=== PATIENT | female | born 1980 | race Caucasian/White ===

== ENCOUNTER 2019-06-05 12:16 | Outpatient (CLI) | payer OTHER, SELFPAY ==
--- NOTE | ~2019-06-05 | MR_ITS ---
EXAMINATION: MR ankle LT wo con DATE: 06/05/2019 13:06 INDICATION: Achilles tendinitis with thinning with 6-9 months of heel pain TECHNIQUE: Magnetic resonance imaging (MRI) of the left ankle was performed without intravenous contr ast. Sequences included sagittal, coronal, and axial proton-density weighted fast spin echo without a nd with fat saturation. COMPARISON: None. FINDINGS: Medial ankle ligaments: Deep and superficial deltoid ligaments as well as the spring ligament are normal. Lateral ankle ligaments: The anterior and posterior inferior tibiofibular ligaments are normal. The anterior talofibular, calc aneofibular and posterior talofibular ligaments are normal. Tendons: Thickening and increased signal of the distal Achilles tendon consistent with moderate insertional te ndinosis. Achilles calcaneal spurs and enthesopathic ossicles in the distal Achilles tendon. No discr ete tendon tear. The peroneus longus and brevis tendons are normal. The tibialis anterior and extenso r hallucis longus and extensor digitorum longus tendons are normal. The tibialis posterior, flexor di gitorum longus and flexor hallucis longus tendons are normal. Plantar fascia: Plantar aponeurosis is normal. Bones/other: There is mild edema at the cephalad posterior tuberosity of the calcaneus at the Achilles tendon inse rtion consistent with mild enthesitis. No associated cortical erosions or bursitis. Bone marrow signa l is otherwise normal throughout. Normal with physiologic amount of joint fluid. There is mild likely reactive edema in the uterus fat pad. IMPRESSION: 1. 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 Reviewed, dictated and finalized at location A. IMPRESSION: 1. 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
== END 2019-06-05 12:17 | disposition home or self-care (01) ==
PROVIDERS: PCP Internal Medicine
DX: M76.62 Achilles tendinitis, left leg (principal)
CPT/HCPCS: 73721

== ENCOUNTER 2019-08-12 11:27 | Outpatient (CLI) | payer OTHER, SELFPAY ==
--- NOTE | 2019-08-12 11:29 | ECG_ITS ---
Measurements Intervals [place] Rate: 80 P: 25 AK: 131 QRS: -21 QRSD: 88 T: 5 QT: 363 QTc: 420 Interpretive Statements SINUS RHYTHM POOR R WAVE PROGRESSION, ANTERIOR LEADS BORDERLINE ECG Electronically Signed On 08-12-2019 12:45:59 CDT by Richard Colindres D.O.
[2019-08-12 11:51] LABS: Hematocrit 39.7 % (37.0-47.0); Hemoglobin 13.1 g/dL (12.0-15.0)
[2019-08-12 12:02] LABS: Blood Urea Nitrogen 7 mg/dL (7-17); Calcium 9.5 mg/dL (8.4-10.2); Carbon Dioxide 31 mmol/L (22-30); Chloride 99 mmol/L (98-107); Estimated Glomerular Filt Rate > 60; Glucose 218 mg/dL (65-105); Sodium 137 mmol/L (137-145)
== END 2019-08-12 11:28 | disposition home or self-care (01) ==
LOC: ANHSURGERY 11:29
PROVIDERS: Anesthesiology; PCP Internal Medicine; Visit Provider Obstetrics & Gynecology Gynecology
DX: Z01.818 Encounter for other preprocedural examination (principal); D64.9 Anemia, unspecified; I10 Essential (primary) hypertension
CPT/HCPCS: 36415; 80048; 85014; 85018; 93005

== ENCOUNTER 2019-08-22 00:08 | Outpatient (CLI) | payer OTHER, SELFPAY ==
[2019-08-22 15:54] LABS: SARS-CoV-2 RNA PCR Negative
== END 2019-08-22 00:09 | disposition home or self-care (01) ==
LOC: ANHCOVIDDT 00:08
PROVIDERS: PCP Internal Medicine; Visit Provider Obstetrics & Gynecology Gynecology
DX: Z01.818 Encounter for other preprocedural examination (principal); Z11.59 Encounter for screening for other viral diseases
CPT/HCPCS: 87635; C9803; U0003

== ENCOUNTER 2019-08-25 04:10 | Day surgery (SDC) | payer OTHER, SELFPAY ==
[2019-08-08 14:50] VITALS: BMI 39.5
[2019-08-25] VITALS (13 sets, daily range): BP systolic 108–158; BP diastolic 67–95; PULSE 70–97; RESP 12–19; TEMP 36.2–36.9; O2SAT 92–100
--- NOTE | 2019-08-25 07:25 | PM.HPGS ---
History of Present Illness History of Present Illness Consent: Risks, benefits, and alternatives have been discussed and questions answered. Patient agrees to proceed with procedure. Chief complaint: menorrhaghia,desires sterilization Narrative: Armida Vega is a 39 year old female with menorrhagia. She had normal D&C hysteroscopy. She tried conservative measures and now has decided to proceed with Kierra endometrial ablation. She has completed her childbearing and will also be having a laparoscopic BTL. Risks of procedures discussed including infection, bleeding, perforation or injury to internal organs, DVT, and anesthesia. Reviewed success rates of BTL and ablation. Discussed failure of BTL has increased ectopic . Patient agrees to proceed. [facility] Past Medical History Medical History (Updated 08/25/19 @ 07:29 by Valerie Daley MD) Allergies Anemia Bronchitis Chicken pox Eczema Essential hypertension Gestational diabetes Heart burn Mononucleosis Neuropathy (normal spontaneous vaginal delivery) Tendonitis Trochanteric bursitis, right hip Type 2 diabetes mellitus Surgical History Surgical History (Updated 08/07/19 @ 11:46 by Judy Molina [facility]) Delivery by section 2014 H/O dilation and curettage 2018 History of cholecystectomy 2010 Family History Family History (Updated 08/07/19 @ 11:48 by Judy Molina [facility]) Mother Hypertension Sibling Patient's brother is in good health Daughter Meningitis Father Arrhythmia Hypertension Diabetes mellitus Other Family history of arthritis Family history of cardiovascular disease Social History Social History Smoking status: Never smoker Alcohol intake: never Meds Home Medications and Allergies Home Medications Medication Instructions Recorded Confirmed Type aspirin 81 mg tablet,delayed 81 mg PO DAILY 01/28/19 08/08/19 History release cetirizine 10 mg capsule 10 mg PO DAILY 01/28/19 08/08/19 History cholecalciferol (vitamin D3) 50 20,000 unit PO BID tablet 01/28/19 08/08/19 History mcg (2,000 unit) tablet ferrous sulfate 325 mg (65 mg 325 mg PO BID 01/28/19 08/08/19 History iron) tablet losartan 100 mg tablet 100 mg PO DAILY 01/28/19 08/08/19 History omega-3 fatty acids 1,000 mg 1,000 mg PO BID 01/28/19 08/08/19 History capsule blood sugar diagnostic #300 each 06/03/19 08/07/19 Rx blood-glucose meter #1 each 06/03/19 08/07/19 Rx hydrochlorothiazide 25 mg tablet 25 mg PO DAILY #90 tablet 06/20/19 08/08/19 Rx gabapentin 600 mg tablet 600 mg PO BID #180 tablet 07/02/19 08/08/19 Rx levonorgestrel 0.15 mg-ethinyl 1 tablet PO DAILY 07/02/19 08/08/19 History estradiol 0.03 mg tablet metformin 1,000 mg tablet 1,000 mg PO BID #180 tablet 07/02/19 08/08/19 Rx simvastatin 40 mg tablet 40 mg PO DAILY #90 tablet 07/10/19 08/08/19 Rx pen needle, diabetic 32 gauge x #200 each 07/29/19 08/07/19 Rx 1/4 naproxen 500 mg tablet 500 mg PO BID PRN #60 tablet 08/04/19 08/08/19 Rx insulin glargine 100 unit/mL (3 65 unit SUB-Q DAILY 90 Days #58.5 08/06/19 08/08/19 Rx mL) subcutaneous pen ml liraglutide 0.6 mg/0.1 mL (18 mg/3 1.8 mg SUBCUT DAILY 90 Days #27 syr 08/06/19 08/08/19 Rx mL) subcutaneous pen injector fluticasone propionate 50 2 spray NASAL DAILY PRN #18.2 ml 08/07/19 08/08/19 Rx mcg/actuation nasal spray,suspension Apple Cider Vinegar Gummies 1 ea PO DAILY 08/08/19 History ergocalciferol (vitamin D2) 50,000 unit PO WEEKLY 08/08/19 08/08/19 History labetalol 100 mg PO BID 08/08/19 08/08/19 History labetalol 400 mg PO BID 08/08/19 08/08/19 History multivitamin 1 tablet PO DAILY 08/08/19 08/08/19 History mupirocin 2 % topical ointment 1 applic TOPICAL TID #30 gm 08/08/19 08/08/19 Rx pantoprazole 20 mg tablet,delayed 20 mg PO QAM #30 tablet 08/18/19 08/18/19 Rx release Allergies Allergy/AdvReac Type Severity Reaction Stat
[2019-08-25] MEDS: LACTATED RINGERS 1,000 ML 30 ML IV CONT ×2 (07:40→10:51)
[2019-08-25 07:56] LABS: Glucose Point of Care 134 (65-105)
--- NOTE | 2019-08-25 09:03 | WPDANESEPPF ---
Anes - Initial Pre Proc Eval Procedure: Operation Date: 08/25/19 09:30 Proposed Procedures p Hysteroscopy, Kierra Ablation - Valerie Daley MD s Laparoscopic Bilateral Tubal Ligation with Fallopian Rings - Valerie Daley MD Date/Time: 08/25/19 09:03 Surgeon: Valerie Daley MD Pre Op Diagnosis: menorrhaghia,desires sterilization Patient Data Age: 39 Gender: F Height: 5 ft 8 in Weight: 118.1 kg Last Vital Signs Temp 98.4 F 08/25/19 07:56 Pulse 88 08/25/19 07:56 Resp 16 08/25/19 07:56 BP 145/95 H 08/25/19 07:56 Pulse Ox 99 08/25/19 07:56 Allergies Allergy/AdvReac Type Severity Reaction Status Date / Time amoxicillin Allergy Severe RASH, Verified 08/25/19 07:18 DIARRHEA coconut Allergy Severe SWELLING, Verified 08/25/19 07:18 RESPIRATORY DISTRESS Penicillins Allergy Severe RASH, Verified 08/25/19 07:18 DIARRHEA exenatide AdvReac Mild DIARRHEA, Verified 08/25/19 07:18 STOMACH CRAMPING Home Medications Medication Instructions Recorded Confirmed Type aspirin 81 mg tablet,delayed 81 mg PO DAILY 01/28/19 08/25/19 History release cetirizine 10 mg capsule 10 mg PO DAILY 01/28/19 08/25/19 History cholecalciferol (vitamin D3) 50 20,000 unit PO BID tablet 01/28/19 08/25/19 History mcg (2,000 unit) tablet ferrous sulfate 325 mg (65 mg 325 mg PO BID 01/28/19 08/25/19 History iron) tablet losartan 100 mg tablet 100 mg PO DAILY 01/28/19 08/25/19 History omega-3 fatty acids 1,000 mg 1,000 mg PO BID 01/28/19 08/08/19 History capsule blood sugar diagnostic #300 each 06/03/19 08/07/19 Rx blood-glucose meter #1 each 06/03/19 08/07/19 Rx hydrochlorothiazide 25 mg tablet 25 mg PO DAILY #90 tablet 06/20/19 08/25/19 Rx gabapentin 600 mg tablet 600 mg PO BID #180 tablet 07/02/19 08/25/19 Rx levonorgestrel 0.15 mg-ethinyl 1 tablet PO DAILY 07/02/19 08/25/19 History estradiol 0.03 mg tablet metformin 1,000 mg tablet 1,000 mg PO BID #180 tablet 07/02/19 08/25/19 Rx simvastatin 40 mg tablet 40 mg PO DAILY #90 tablet 07/10/19 08/25/19 Rx pen needle, diabetic 32 gauge x #200 each 07/29/19 08/07/19 Rx 1/4 naproxen 500 mg tablet 500 mg PO BID PRN #60 tablet 08/04/19 08/25/19 Rx insulin glargine 100 unit/mL (3 65 unit SUB-Q DAILY 90 Days #58.5 08/06/19 08/25/19 Rx mL) subcutaneous pen ml liraglutide 0.6 mg/0.1 mL (18 mg/3 1.8 mg SUBCUT DAILY 90 Days #27 syr 08/06/19 08/25/19 Rx mL) subcutaneous pen injector fluticasone propionate 50 2 spray NASAL DAILY PRN #18.2 ml 08/07/19 08/25/19 Rx mcg/actuation nasal spray,suspension Apple Cider Vinegar Gummies 1 ea PO DAILY 08/08/19 08/25/19 History ergocalciferol (vitamin D2) 50,000 unit PO WEEKLY 08/08/19 08/25/19 History labetalol 100 mg PO BID 08/08/19 08/25/19 History labetalol 400 mg PO BID 08/08/19 08/25/19 History multivitamin 1 tablet PO DAILY 08/08/19 08/25/19 History mupirocin 2 % topical ointment 1 applic TOPICAL TID #30 gm 08/08/19 08/25/19 Rx pantoprazole 20 mg tablet,delayed 20 mg PO QAM #30 tablet 08/18/19 08/25/19 Rx release Laboratory Tests 08/25/19 07:54 POC Capillary Glucose 134 mg/dl H mg/dl (65-105) Patient hx anesthesia problems: none Family hx anesthesia problems: none PMFSH Past Medical History Medical History (Updated 08/25/19 @ 07:29 by Valerie Daley MD) Allergies Anemia Bronchitis Chicken pox Eczema Essential hypertension Gestational diabetes Heart burn Mononucleosis Neuropathy (normal spontaneous vaginal delivery) Tendonitis Trochanteric bursitis, right hip Type 2 diabetes mellitus Surgical History Surgical History (Updated 08/07/19 @ 11:46 by Judy Molina CMA) Delivery by section 2014 H/O dilation and curettage 2018 History of cholecystectomy 2010 Family History Family History (Updated 08/07/19 @ 11:48 by Judy Molina CMA) Mother Hypertension Sibling Patient's brother is in good h
[2019-08-25] MEDS: KETOROLAC 30 MG/ML VIAL (*BKC) IV PUSH (10:30)
--- NOTE | 2019-08-25 10:44 | PM.OP ---
Procedure Note - Brief Procedure Note - Brief Date of procedure: 08/25/19 Pre-op diagnosis: menorrhaghia,desires sterilization Post-op diagnosis: same Procedure performed: laparoscopic BTL: right with falope ring and left with bipolar cautery Anesthesia: AARON Surgeon: Valerie Daley MD Estimated blood loss (mL): 5 Drains: No Packing: No Pathology: none sent Complications: No immediate complications Condition: stable Disposition: PACU Findings: uterus 10 cm grossly normal appearing; tubes and ovaries normal appearing
[2019-08-25 11:34] LABS: Glucose Point of Care 200 (65-105)
--- NOTE | 2019-08-25 14:43 | OP_ITS ---
DATE OF PROCEDURE: 08/25/2019 PREOPERATIVE DIAGNOSIS: Menorrhagia, requests sterilization. POSTOPERATIVE DIAGNOSIS: Menorrhagia, requests sterilization. PROCEDURE: Laparoscopic bilateral tubal ligation. Right tube with Falope ring. Left tube with bipolar cautery. Endometrial ablation with hysteroscopy with Kierra. ANESTHESIA: General with ET tube. FINDINGS: Normal-appearing tubes, ovaries, and uterus. The endometrium appears grossly normal. The uterus sounds to 10 cm. ESTIMATED BLOOD LOSS: 5 cc. PATHOLOGY: None. DESCRIPTION OF PROCEDURE: The patient was taken to the operating room, placed under anesthesia in the dorsal lithotomy position. She was prepped and draped in the usual sterile fashion. The intellectual property legal assistant drained the bladder with a red rubber catheter. The bivalved speculum was placed in the vagina. Cervix was grasped on the anterior lip with a tenaculum and the acorn manipulator placed. The speculum was removed. Attention was turned to the abdomen. A vertical skin incision was made at the base of the umbilicus. The abdomen was tented with towel clamps, a Veress needle was placed. Opening patient pressure was 4 mmHg. Water drop test was normal. Pneumoperitoneum was obtained to a patient pressure of 15. The Veress needle was removed. The 5 mm Optiview trocar was placed. Intraabdominal placement was confirmed with the laparoscope. The patient was placed in Trendelenburg. An 8 mm horizontal skin incision was made 2 cm above the symphysis pubis. The 8 mm disposable trocar was placed. The blunt probe was used to bring the tubes into the operative view. The left tube was grasped with the ring applicator and the ring applicator sliced the tube in half. Cautery was called for. In the meantime, the right tube was grasped with the ring applicator and the Falope ring was applied. A good loop of tube was noted within the applicator. Once bipolar cautery was available, the tube was cauterized over each segment that had been transected as well as 2 additional locations, 1 above and 1 below the transection site. The abdominal instruments were removed. The skin incisions were closed with 4-0 nylon in an interrupted fashion. Attention was turned to the vagina. The acorn manipulator was removed. The uterus was sounded to 10 cm. The cervix was serially dilated with Hegar. The diagnostic hysteroscope was placed with the above-stated findings. The ablation Kierra device was opened and placed. Past the cavity assessment on the 1st attempt soon as it got through the 120 second count down, it went to 119 and then had troubleshooting error indicates the device itself was defective. A 2nd device was opened and placed. Cavity assessment passed on the 1st attempt. The treatment cycle lasted a full 2 minutes. Ablation device was removed. The hysteroscope was replaced. Good ablation effect was noted. All instruments are removed. The patient was taken to Recovery in stable condition. D I MT: Valerie
== END 2019-08-25 13:52 | disposition home or self-care (01) ==
PROVIDERS: PCP Internal Medicine; Visit Provider Obstetrics & Gynecology Gynecology
PROC: 0U5B8ZZ Destruction of Endometrium, Via Natural or Artificial Opening Endoscopic (ICD-10-PCS; CPT 58563; principal; 2019-08-25 09:30)
PROC: (CPT 58671; 2019-08-25 09:30)
DX: N92.0 Excessive and frequent menstruation with regular cycle (principal); Z30.2 Encounter for sterilization; I10 Essential (primary) hypertension; E11.40 Type 2 diabetes mellitus with diabetic neuropathy, unspecified; D64.9 Anemia, unspecified; Z79.82 Long term (current) use of aspirin; Z79.84 Long term (current) use of oral hypoglycemic drugs; Z79.4 Long term (current) use of insulin; E66.01 Morbid (severe) obesity due to excess calories; Z68.39 Body mass index [BMI] 39.0-39.9, adult
CPT/HCPCS: 58563; 58671; 58670; A4264; A9270; J1100; J1170; J1885; J2250; J2405; J2704; J2710; J3010; J7030; J7120

== ENCOUNTER 2019-10-25 00:34 | Outpatient (CLI) | payer OTHER, SELFPAY ==
[2019-10-25 18:11] LABS: SARS-CoV-2 RNA PCR Negative
== END 2019-10-25 00:35 | disposition home or self-care (01) ==
LOC: ANHCOVIDDT 00:37
PROVIDERS: PCP Internal Medicine; Visit Provider Internal Medicine Gastroenterology
DX: Z01.812 Encounter for preprocedural laboratory examination (principal); Z11.59 Encounter for screening for other viral diseases
CPT/HCPCS: 87635; C9803; U0003

== ENCOUNTER 2019-10-28 01:55 | Day surgery (SDC) | payer OTHER, SELFPAY ==
[2019-10-21 13:22] VITALS: BMI 38.2
[2019-10-28 07:59] VITALS: BP 129/80; PULSE 82; RESP 16; TEMP 36; O2SAT 97; BMI 37.8
--- NOTE | 2019-10-28 08:17 | WPDANESEPPF ---
Anes - Initial Pre Proc Eval Procedure: Operation Date: 10/28/19 09:00 Proposed Procedures p Esophagogastroduodenoscopy - Wyatt Smith MD Date/Time: 10/28/19 08:17 Surgeon: Wyatt Smith MD Pre Op Diagnosis: GERD Patient Data Age: 39 Gender: F Height: 5 ft 8 in Weight: 113 kg Last Vital Signs Temp 96.8 F L 10/28/19 07:59 Pulse 82 10/28/19 07:59 Resp 16 10/28/19 07:59 BP 129/80 10/28/19 07:59 Pulse Ox 97 10/28/19 07:59 Allergies Allergy/AdvReac Type Severity Reaction Status Date / Time amoxicillin Allergy Severe RASH, Verified 10/28/19 07:55 DIARRHEA coconut Allergy Severe SWELLING, Verified 10/28/19 07:55 RESPIRATORY DISTRESS Penicillins Allergy Severe RASH, Verified 10/28/19 07:55 DIARRHEA exenatide AdvReac Mild DIARRHEA, Verified 10/28/19 07:55 STOMACH CRAMPING Home Medications Medication Instructions Recorded Confirmed Type aspirin 81 mg tablet,delayed 81 mg PO DAILY 01/28/19 10/21/19 History release cholecalciferol (vitamin D3) 50 20,000 unit PO BID tablet 01/28/19 10/21/19 History mcg (2,000 unit) tablet ferrous sulfate 325 mg (65 mg 325 mg PO BID 01/28/19 10/21/19 History iron) tablet blood sugar diagnostic #300 each 06/03/19 10/14/19 Rx blood-glucose meter #1 each 06/03/19 10/14/19 Rx pen needle, diabetic 32 gauge x #200 each 07/29/19 10/14/19 Rx 1/4 liraglutide 0.6 mg/0.1 mL (18 mg/3 1.8 mg SUBCUT DAILY 90 Days #27 syr 08/06/19 10/21/19 Rx mL) subcutaneous pen injector ergocalciferol (vitamin D2) 50,000 unit PO WEEKLY 08/08/19 10/21/19 History atorvastatin 20 mg tablet 20 mg PO DAILY #90 tablet 09/04/19 10/21/19 Rx metformin 1,000 mg tablet 2,000 mg PO BID tablet 09/04/19 10/21/19 History pantoprazole 20 mg tablet,delayed 20 mg PO QAM #30 tablet 09/12/19 10/21/19 Rx release insulin glargine 100 unit/mL (3 80 unit SUB-Q DAILY 90 Days #72 ml 10/06/19 10/21/19 Rx mL) subcutaneous pen labetalol 100 mg tablet 100 mg PO BID #180 tablet 10/07/19 10/21/19 Rx labetalol 200 mg tablet 400 mg PO BID #180 tablet 10/07/19 10/21/19 Rx hydrochlorothiazide 12.5 mg tablet 12.5 mg PO DAILY #90 tablet 10/14/19 10/21/19 Rx losartan 100 mg tablet 100 mg PO DAILY #90 tablet 10/15/19 10/21/19 Rx gabapentin 300 mg PO BID 10/21/19 10/21/19 History [id number] acid-biotin 1 tablet PO DAILY 10/21/19 10/21/19 History [Women's Multivitamin w-Biotin] Patient hx anesthesia problems: none Family hx anesthesia problems: none PMFSH Past Medical History Medical History (Updated 10/14/19 @ 15:33 by Breann Parker, RT(R)) Allergies Anemia Bronchitis Chicken pox Chondromalacia, patella Daytime sleepiness Degenerative joint disease of knee Eczema Encounter for sterilization Essential hypertension Gestational diabetes Heart burn Hypertension Low vitamin D level Menorrhagia Mononucleosis Neuropathy (normal spontaneous vaginal delivery) Right knee pain Tendonitis Trochanteric bursitis, right hip Type 2 diabetes mellitus Updated A1C provided 10/14/19: 7.4 Surgical History Surgical History (Updated 10/14/19 @ 15:32 by Breann Parker, RT(R)) Delivery by section 2014 H/O dilation and curettage 2017 H/O foot surgery heel spur removal H/O prior ablation treatment H/O tubal ligation History of cholecystectomy 2010 Social History Social History Smoking status: Never smoker Alcohol intake: never Anes - Eval Final PreProcedure Day of Procedure 10/28/19 08:17 Patient weight: obese Heart: regular rate and rhythm Lungs: clear to auscultation Airway: Mallampati scale class III Neurological: alert and oriented Last oral intake: >/= 8 hours ASA classification: III Emergent: no Anesthetic plan: proceed Anesthesia type and monitoring: general GIVS and standard monitoring Informed Consent: The patient's anesthetic p
[2019-10-28 08:25] LABS: Glucose Point of Care 125 (65-105)
[2019-10-28] MEDS: LACTATED RINGERS 1,000 ML 150 ML IV CONT (08:25)
--- NOTE | 2019-10-28 08:52 | PM.HPGS ---
History of Present Illness History of Present Illness Consent: Risks, benefits, and alternatives have been discussed and questions answered. Patient agrees to proceed with procedure. Chief complaint: GERD Narrative: Armida Vega is a 39 year old female with gerd on protonix and most recently on pepcid doing better, never had EGD Review of Systems Constitutional: Constitutional: Denies headache(s) and Denies weakness Eyes: Eyes: Denies blurry vision ENT: Reports Normal hearing present, Denies headache(s) and Denies neck pain Cardiovascular: Cardiovascular: Denies chest pain and Denies dyspnea Respiratory: Respiratory: Denies dyspnea Gastrointestinal: Gastrointestinal: Reports no additional gastrointestinal complaints Genitourinary: Genitourinary: Denies dysuria Musculoskeletal: Musculoskeletal: Denies neck pain Integumentary/Breasts: Skin/Breast: Denies dry skin Neurologic: Reports Normal hearing present, Denies headache(s) and Denies weakness Psychiatric: Psychiatric: Denies anxiety Endocrine: Endocrine: Denies change in body appearance Hematologic/Lymphatic: Hematologic/Lymphatic: Denies easy bleeding Allergic/Immunologic: Allergic/Immunologic: Denies urticaria PMFSH Past Medical History Medical History (Updated 10/28/19 @ 08:53 by Wyatt Smith MD) Allergies Anemia Bronchitis Chicken pox Chondromalacia, patella Daytime sleepiness Degenerative joint disease of knee Eczema Encounter for sterilization Essential hypertension GERD (gastroesophageal reflux disease) Gestational diabetes Heart burn Hypertension Low vitamin D level Menorrhagia Mononucleosis Neuropathy (normal spontaneous vaginal delivery) Right knee pain Tendonitis Trochanteric bursitis, right hip Type 2 diabetes mellitus Updated A1C provided 10/14/19: 7.4 Surgical History Surgical History (Updated 10/14/19 @ 15:32 by Breann Parker, RT(R)) Delivery by section 2014 H/O dilation and curettage 2017 H/O foot surgery heel spur removal H/O prior ablation treatment H/O tubal ligation History of cholecystectomy 2010 Social History Social History Smoking status: Never smoker Alcohol intake: never Meds Home Medications and Allergies Home Medications Medication Instructions Recorded Confirmed Type aspirin 81 mg tablet,delayed 81 mg PO DAILY 01/28/19 10/21/19 History release cholecalciferol (vitamin D3) 50 20,000 unit PO BID tablet 01/28/19 10/21/19 History mcg (2,000 unit) tablet ferrous sulfate 325 mg (65 mg 325 mg PO BID 01/28/19 10/21/19 History iron) tablet blood sugar diagnostic #300 each 06/03/19 10/14/19 Rx blood-glucose meter #1 each 06/03/19 10/14/19 Rx pen needle, diabetic 32 gauge x #200 each 07/29/19 10/14/19 Rx 1/4 liraglutide 0.6 mg/0.1 mL (18 mg/3 1.8 mg SUBCUT DAILY 90 Days #27 syr 08/06/19 10/21/19 Rx mL) subcutaneous pen injector ergocalciferol (vitamin D2) 50,000 unit PO WEEKLY 08/08/19 10/21/19 History atorvastatin 20 mg tablet 20 mg PO DAILY #90 tablet 09/04/19 10/21/19 Rx metformin 1,000 mg tablet 2,000 mg PO BID tablet 09/04/19 10/21/19 History pantoprazole 20 mg tablet,delayed 20 mg PO QAM #30 tablet 09/12/19 10/21/19 Rx release insulin glargine 100 unit/mL (3 80 unit SUB-Q DAILY 90 Days #72 ml 10/06/19 10/21/19 Rx mL) subcutaneous pen labetalol 100 mg tablet 100 mg PO BID #180 tablet 10/07/19 10/21/19 Rx labetalol 200 mg tablet 400 mg PO BID #180 tablet 10/07/19 10/21/19 Rx hydrochlorothiazide 12.5 mg tablet 12.5 mg PO DAILY #90 tablet 10/14/19 10/21/19 Rx losartan 100 mg tablet 100 mg PO DAILY #90 tablet 10/15/19 10/21/19 Rx gabapentin 300 mg PO BID 10/21/19 10/21/19 History [id number] acid-biotin 1 tablet PO DAILY 10/21/19 10/21/19 History [Women's Multivitamin w-Biotin] Allergies Allergy/AdvReac Type Severity Reaction Status Date / Time amoxicillin All
[2019-10-28 09:17] VITALS: BP 165/107; PULSE 86; RESP 16; O2SAT 96
[2019-10-28 09:27] VITALS: BP 152/95; PULSE 81; RESP 15; O2SAT 99
[2019-10-28 09:34] LABS: Glucose Point of Care 129 (65-105)
[2019-10-28 09:37] VITALS: BP 131/71; PULSE 80; RESP 16; O2SAT 99
== END 2019-10-28 09:53 | disposition home or self-care (01) ==
PROVIDERS: PCP Internal Medicine; Visit Provider Internal Medicine Gastroenterology
PROC: 0DJ08ZZ Inspection of Upper Intestinal Tract, Via Natural or Artificial Opening Endoscopic (ICD-10-PCS; CPT 43235; principal; 2019-10-28 09:00)
DX: K21.9 Gastro-esophageal reflux disease without esophagitis (principal); K31.84 Gastroparesis; K29.50 Unspecified chronic gastritis without bleeding; B96.81 Helicobacter pylori [H. pylori] as the cause of diseases classified elsewhere; E11.40 Type 2 diabetes mellitus with diabetic neuropathy, unspecified; I10 Essential (primary) hypertension; E55.9 Vitamin D deficiency, unspecified; D64.9 Anemia, unspecified; Z79.4 Long term (current) use of insulin; Z79.82 Long term (current) use of aspirin; Z79.84 Long term (current) use of oral hypoglycemic drugs; E66.9 Obesity, unspecified; Z68.37 Body mass index [BMI] 37.0-37.9, adult
CPT/HCPCS: 43239; 88305; 88342; J2704; J7120

== ENCOUNTER 2019-11-06 10:56 | Outpatient (CLI) | payer OTHER, SELFPAY ==
--- NOTE | 2019-11-10 15:37 | SLEEP_ITS ---
Home Sleep Test DATE OF STUDY: 11/06/2019 REASON FOR THE STUDY: Hypersomnia. HISTORY: The patient is a 39-year-old female 5 feet 8 inches tall, weighing 250 pounds with a body mass index of 38. She has a history of excessive daytime sleepiness and she wakes frequently while sleeping. This has been going on for several years. She had anesthesia in August and the hospital staff witnessed apneas, recommended that she gets a sleep study. She constantly awakens from sleep with heartburn, belching, coughing, constantly snores, and it is constantly loud enough that others complain about it. There is a family history, her father has sleep apnea. She frequently has trouble sleeping with a cold. She rarely wakes up gasping for breath at night, rarely has breathing problems at night witnessed by others, frequently sweats excessively at night. She does not notice her heart pounding or beating irregularly at night. She frequently falls asleep during the day, frequently involuntarily, but never while driving or with physical effort. She does not have loss of muscle tone with strong emotion. She occasionally has daytime difficulties due to excessive sleepiness. 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 She does not feel paralyzed on waking or falling asleep. Does not have vivid dreamlike scenes upon awakening or falling asleep, is never afraid to go to sleep and does not have nightmares. She frequently remembers her dreams. She rarely has racing thoughts. She never feels sad or depressed. She rarely has anxiety. She does not have muscular tension. She occasionally notices parts of her body jerking, occasionally kicks at night, occasionally has crawly achy feelings in her legs and frequently has leg pain at night. She does not have morning jaw pain. She occasionally grinds her teeth at night. She frequently is bothered by pain during the day, frequently is awakened by pain at night, constantly wakes up feeling stiff in the morning with sore achy muscles and frequently wakes up with pain in the neck and spine. She has headaches and fatigue. She takes antacids regularly. Normal bedtime is 1 a.m. taking an hour or longer to fall asleep, typically waking 2-3 times at night and she will stay awake anywhere between 20 minutes up to an hour. During this time, she will go to the bathroom, get a drink, possibly read or check social media in order to help her fall asleep. She wakes in the morning at 9 a.m. Weekend schedule shows that she goes to bed at the same time 1 a.m. and wakes at 8 a.m. She travels quite a bit because her kids have a very busy schedule. She sometimes takes a nap. A short nap is not refreshing. She is usually drowsy in the morning for 2 hours or longer. MEDICAL COMORBIDITIES: Anemia, hypertension, gastroesophageal reflux disease, hay fever, diabetes mellitus type 2 with neuropathy, asthma in the winter time. MEDICATIONS: Basaglar 80 units at bedtime, Victoza 1.8 units in the morning, metformin 2000 mg daily, labetalol 500 mg twice a day, losartan 100 mg a day, hydrochlorothiazide 12.5 mg daily, gabapentin 300 mg twice a day, ferrous sulfate twice a day, atorvastatin 20 mg a day, Protonix in the morning and Pepcid in the evening, vitamin D 2000 units daily, vitamin B12 daily, aspirin daily, multivitamin daily, fish oil twice a day, apple cider vinegar twice a day. HABITS: Never smoked tobacco. Caffeine, 2 to 3 servings a day. No alcohol. No recreational drugs. DESCRIPTION OF THE STUDY: This was conducted as an unattended type 3 portable home sleep test using 4 channel monitoring including respiratory effort channel, snoring channel, oxygen saturation channel, and heart rate channel. The duration of the study was 8 hours 39 minutes. The [facility] Sleepiness Scal
== END 2019-11-06 10:57 ==
LOC: ANHCSM 03-10 10:56
PROVIDERS: PCP Internal Medicine; Visit Provider Internal Medicine
DX: G47.33 Obstructive sleep apnea (adult) (pediatric) (principal)
CPT/HCPCS: 95806

== ENCOUNTER 2019-12-02 10:51 | Outpatient (CLI) | payer OTHER, SELFPAY ==
--- NOTE | ~2019-12-02 | MM_ITS ---
EXAMINATION: MM screening laya BI w north HISTORY: Screening mammogram TECHNIQUE: Craniocaudal and mediolateral oblique 3-D tomosynthesis images were obtained and synthetic 2-D images were generated. CAD analysis was submitted and interpreted. COMPARISON: No prior mammogram is available for comparison at this institution. BREAST PARENCHYMAL COMPOSITION: The breasts are almost entirely fatty. FINDINGS: There is no evidence of suspicious mass, calcification, or architectural distortion to sugg est malignancy in either breast. There has been no suspicious interval change. IMPRESSION: 1. No mammographic evidence of malignancy. 2. Recommend routine screening mammography in one year. BI-RADS Category 1: Negative Reviewed, dictated and finalized at location A.
== END 2019-12-02 10:52 | disposition home or self-care (01) ==
LOC: ANHIMG 10:54
PROVIDERS: PCP Internal Medicine; Visit Provider Nurse Practitioner
DX: Z12.31 Encounter for screening mammogram for malignant neoplasm of breast (principal)
CPT/HCPCS: 77063; 77067

== ENCOUNTER 2019-12-04 07:49 | Outpatient (CLI) | payer OTHER, SELFPAY ==
--- NOTE | ~2019-12-04 | US_ITS ---
US abdomen limited INDICATION: Liver ultrasound PROCEDURE: Realtime right upper abdominal ultrasound. COMPARISON: No prior studies for comparison. FINDINGS: The pancreas is normal without focal mass or pancreatic ductal dilation. Liver echotexture is increased, consistent with fatty infiltration. There is normal directional flow in the portal ve in. Gallbladder is surgically absent. Common bile duct measures 5 mm. No sonographic Turner's sign. IMPRESSION: 1: Hepatic steatosis. Reviewed, dictated and finalized at location B. IMPRESSION: 1: Hepatic steatosis.
== END 2019-12-04 07:50 | disposition home or self-care (01) ==
LOC: ANHIMG 07:51
PROVIDERS: PCP Internal Medicine; Visit Provider Clinical Nurse Specialist
DX: K76.0 Fatty (change of) liver, not elsewhere classified (principal)
CPT/HCPCS: 76705

== ENCOUNTER 2020-01-14 08:07 | Outpatient (CLI) | payer OTHER, SELFPAY ==
--- NOTE | ~2020-01-14 | NM_ITS ---
EXAM: NM gastric emptying study DATE: 01/14/2020 13:16 INDICATION: Gastroesophageal reflux disease. There are 2 diabetes. TECHNIQUE: A gastric emptying study was performed using the methodology of Aneesh FERNANDEZ, et al. J Nucl Med 2007; 48:568-572. The patient was given a meal consisting of 2 scrambled eggs labeled with 0.950 mCi Tc-99m sulfur colloid, 2 slices of toast, two packages of jam, and approximately 120 mL of water . Simultaneous anterior and posterior 1-min images of the abdomen were obtained with the patient supi ne at multiple time points over a total period of 4 hours. The geometric mean of anterior and posteri or views was determined, and the percentage retention was calculated for each time point. COMPARISON: None. FINDINGS: Gastric retention of the radiotracer-labeled meal was 18%, 3%, and 3% at the 1-hour, 2-fei r, and 4-hour time points, respectively. With this technique, apparent rapid gastric emptying is sugg ested by <30% gastric retention at 1 hour. Delayed gastric emptying is defined by gastric retention o f >90% at 1 hour, >60% retention at 2 hours, or >10% retention at 4 hours. IMPRESSION: 1. Rapid gastric emptying. Reviewed, dictated and finalized at location A. IMPRESSION: 1. Rapid gastric emptying.
== END 2020-01-14 08:08 | disposition home or self-care (01) ==
PROVIDERS: PCP Internal Medicine; Visit Provider Internal Medicine Gastroenterology
DX: E11.9 Type 2 diabetes mellitus without complications (principal); K21.9 Gastro-esophageal reflux disease without esophagitis
CPT/HCPCS: 78264; A9541

== ENCOUNTER 2020-02-20 13:15 | Outpatient (CLI) | payer OTHER, SELFPAY ==
[2020-02-25 10:24] LABS: H pylori Ag Stool Detected (Not Detected)
== END 2020-02-20 13:16 | disposition home or self-care (01) ==
LOC: ANHLAB 13:16
PROVIDERS: PCP Internal Medicine; Visit Provider Internal Medicine Gastroenterology
DX: K29.70 Gastritis, unspecified, without bleeding (principal); B96.81 Helicobacter pylori [H. pylori] as the cause of diseases classified elsewhere
CPT/HCPCS: 87338

== ENCOUNTER 2020-05-27 16:11 | Outpatient (NON) | payer OTHER, SELFPAY ==
[2020-06-01 05:00] LABS: H pylori Ag Stool Detected (Not Detected)
== END 2020-05-27 16:12 ==
LOC: ANHLAB 16:13
PROVIDERS: PCP Internal Medicine; Visit Provider Nurse Practitioner Family
DX: B96.81 Helicobacter pylori [H. pylori] as the cause of diseases classified elsewhere (principal); K29.70 Gastritis, unspecified, without bleeding; R19.7 Diarrhea, unspecified
CPT/HCPCS: 87324; 87338

== ENCOUNTER → 2020-06-29 00:43 | Outpatient (CLI) | payer OTHER, SELFPAY ==
[2020-06-29 20:44] LABS: SARS-CoV-2 RNA PCR Negative
== END ==
PROVIDERS: Internal Medicine Gastroenterology; PCP Internal Medicine; Visit Provider Internal Medicine Gastroenterology
DX: R05 Cough (principal); Z20.822 Contact with and (suspected) exposure to COVID-19
CPT/HCPCS: C9803; U0003; U0005

== ENCOUNTER 2020-07-02 00:59 | Day surgery (SDC) | payer OTHER, SELFPAY ==
[2020-06-22 13:18] VITALS: BMI 34.2
[2020-07-02 11:28] VITALS: BP 120/75; PULSE 84; RESP 18; TEMP 36.3; O2SAT 97
[2020-07-02] MEDS: LACTATED RINGERS 1,000 ML 150 ML IV CONT (11:38)
--- NOTE | 2020-07-02 11:44 | WPDANESEPPF ---
Anes - Initial Pre Proc Eval Procedure: Operation Date: 07/02/20 12:30 Proposed Procedures p Colonoscopy - Wyatt Smith MD Date/Time: 07/02/20 11:44 Surgeon: Wyatt Smith MD Pre Op Diagnosis: diarrhea Patient Data Age: 40 Gender: F Height: 5 ft 8 in Weight: 108 kg Last Vital Signs Temp 97.4 F L 07/02/20 11:28 Pulse 84 07/02/20 11:28 Resp 18 07/02/20 11:28 BP 120/75 07/02/20 11:28 Pulse Ox 97 07/02/20 11:28 Allergies Allergy/AdvReac Type Severity Reaction Status Date / Time amoxicillin Allergy Severe RASH, Verified 07/02/20 11:25 DIARRHEA coconut Allergy Severe SWELLING, Verified 07/02/20 11:25 RESPIRATORY DISTRESS Penicillins Allergy Severe RASH, Verified 07/02/20 11:25 DIARRHEA exenatide AdvReac Mild DIARRHEA, Verified 07/02/20 11:25 STOMACH CRAMPING Home Medications Medication Instructions Recorded Confirmed Type aspirin 81 mg tablet,delayed 81 mg PO DAILY 01/28/19 06/22/20 History release blood-glucose meter #1 each 06/03/19 05/24/20 Rx [id number]-mfh-yesil acid-biotin 1 tablet PO DAILY 10/21/19 06/22/20 History [Women's Multivitamin w-Biotin] ascorbic acid (vitamin C) 1,000 mg 1 g PO BID tablet 02/19/20 06/22/20 History tablet famotidine 20 mg tablet 20 mg PO DAILY #30 tablet 04/02/20 06/22/20 Rx cholecalciferol (vitamin D3) 50 2,000 unit PO BID tablet 05/11/20 06/22/20 History mcg (2,000 unit) tablet ferrous sulfate 325 mg (65 mg 325 mg PO DAILY 90 Days #90 tablet 05/11/20 06/22/20 Rx iron) tablet insulin glargine 100 unit/mL (3 85 unit SUB-Q DAILY 90 Days #76.5 05/11/20 07/02/20 Rx mL) subcutaneous pen ml liraglutide 0.6 mg/0.1 mL (18 mg/3 1.8 mg SUBCUT DAILY 90 Days #27 syr 05/11/20 06/22/20 Rx mL) subcutaneous pen injector metformin 1,000 mg tablet 1,000 mg PO BID #180 tablet 05/11/20 06/22/20 Rx albuterol sulfate 90 mcg/actuation 2 puff INHALATION Q4-6H PRN #18 gm 05/13/20 06/22/20 Rx aerosol inhaler atorvastatin 20 mg tablet See Rx Instructions .ROUTE 05/13/20 06/22/20 Rx .COMPLEX #90 tablet hydrochlorothiazide 25 mg tablet 25 mg PO DAILY #90 tablet 05/13/20 06/22/20 Rx labetalol 100 mg tablet 100 mg PO BID #180 tablet 05/13/20 06/22/20 Rx labetalol 200 mg tablet 400 mg PO BID #180 tablet 05/13/20 06/22/20 Rx losartan 50 mg tablet 50 mg PO DAILY #90 tablet 05/13/20 06/22/20 Rx gabapentin 800 mg tablet 800 mg PO TID #270 tablet 06/10/20 06/22/20 Rx pantoprazole 40 mg tablet,delayed 40 mg PO QAM #30 tablet 06/16/20 06/22/20 Rx release blood sugar diagnostic #100 ea 06/18/20 Rx pen needle, diabetic 32 gauge x #200 each 06/21/20 Rx 1/4 Tumeric BYMOUTH DAILY 06/22/20 History Patient hx anesthesia problems: none Family hx anesthesia problems: none PMFSH Past Medical History Medical History (Updated 05/24/20 @ 09:25 by Linda Flores, BUFFER MACHINE-C) Allergies Anemia Bilateral hip pain Bronchitis Chicken pox Chondromalacia, patella Cough Daytime sleepiness Degenerative joint disease of knee Diarrhea Eczema Encounter for sterilization Essential hypertension GERD (gastroesophageal reflux disease) Gestational diabetes Heart burn Helicobacter positive gastritis Hypertension Low vitamin D level Menorrhagia Mononucleosis Neuropathy (normal spontaneous vaginal delivery) Right knee pain Sleep apnea Tendonitis Trochanteric bursitis Trochanteric bursitis, right hip Type 2 diabetes mellitus Updated A1C provided 10/14/19: 7.4 Surgical History Surgical History Delivery by section 2014 H/O dilation and curettage 2017 H/O foot surgery heel spur removal H/O prior ablation treatment H/O tubal ligation History of cholecystectomy 2010 Family History Family History Mother Hypertension Sibling Patient's brother is in good health Daughter Me
--- NOTE | 2020-07-02 12:17 | PM.HPGS ---
History of Present Illness History of Present Illness Consent: Risks, benefits, and alternatives have been discussed and questions answered. Patient agrees to proceed with procedure. Chief complaint: diarrhea Narrative: Armida Vega is a 40 year old female with loose stool with very foul smell, never had colonoscopy. Review of Systems Constitutional: Constitutional: Denies headache(s) and Denies weakness Eyes: Eyes: Denies blurry vision ENT: Reports Normal hearing present, Denies headache(s) and Denies neck pain Cardiovascular: Cardiovascular: Denies chest pain and Denies dyspnea Respiratory: Respiratory: Denies dyspnea Gastrointestinal: Gastrointestinal: Reports no additional gastrointestinal complaints Genitourinary: Genitourinary: Denies dysuria Musculoskeletal: Musculoskeletal: Denies neck pain Integumentary/Breasts: Skin/Breast: Denies dry skin Neurologic: Reports Normal hearing present, Denies headache(s) and Denies weakness Psychiatric: Psychiatric: Denies anxiety Endocrine: Endocrine: Denies change in body appearance Hematologic/Lymphatic: Hematologic/Lymphatic: Denies easy bleeding Allergic/Immunologic: Allergic/Immunologic: Denies urticaria PMFSH Past Medical History Medical History (Updated 05/24/20 @ 09:25 by ORLY FinkN-C) Allergies Anemia Bilateral hip pain Bronchitis Chicken pox Chondromalacia, patella Cough Daytime sleepiness Degenerative joint disease of knee Diarrhea Eczema Encounter for sterilization Essential hypertension GERD (gastroesophageal reflux disease) Gestational diabetes Heart burn Helicobacter positive gastritis Hypertension Low vitamin D level Menorrhagia Mononucleosis Neuropathy (normal spontaneous vaginal delivery) Right knee pain Sleep apnea Tendonitis Trochanteric bursitis Trochanteric bursitis, right hip Type 2 diabetes mellitus Updated A1C provided 10/14/19: 7.4 Surgical History Surgical History Delivery by section 2014 H/O dilation and curettage 2017 H/O foot surgery heel spur removal H/O prior ablation treatment H/O tubal ligation History of cholecystectomy 2010 Family History Family History Mother Hypertension Sibling Patient's brother is in good health Daughter Meningitis Father Arrhythmia Hypertension Diabetes mellitus Other Family history of arthritis Family history of cardiovascular disease Social History Social History Smoking status: Never smoker Alcohol intake: never Living arrangements: with family Gender identity (if verbalized by the patient): Female Spiritual care concerns: No Meds Home Medications and Allergies Home Medications Medication Instructions Recorded Confirmed Type aspirin 81 mg tablet,delayed 81 mg PO DAILY 01/28/19 06/22/20 History release blood-glucose meter #1 each 06/03/19 05/24/20 Rx [id number]-kvm-eglii acid-biotin 1 tablet PO DAILY 10/21/19 06/22/20 History [Women's Multivitamin w-Biotin] ascorbic acid (vitamin C) 1,000 mg 1 g PO BID tablet 02/19/20 06/22/20 History tablet famotidine 20 mg tablet 20 mg PO DAILY #30 tablet 04/02/20 06/22/20 Rx cholecalciferol (vitamin D3) 50 2,000 unit PO BID tablet 05/11/20 06/22/20 History mcg (2,000 unit) tablet ferrous sulfate 325 mg (65 mg 325 mg PO DAILY 90 Days #90 tablet 05/11/20 06/22/20 Rx iron) tablet insulin glargine 100 unit/mL (3 85 unit SUB-Q DAILY 90 Days #76.5 05/11/20 07/02/20 Rx mL) subcutaneous pen ml liraglutide 0.6 mg/0.1 mL (18 mg/3 1.8 mg SUBCUT DAILY 90 Days #27 syr 05/11/20 06/22/20 Rx mL) subcutaneous pen injector metformin 1,000 mg tablet 1,000 mg PO BID #180 tablet 05/11/20 06/22/20 Rx albuterol sulfate 90 mcg/actuation 2 puff INHALATION Q4-6H PRN #18 gm 05/13/20 06/22/20 Rx aerosol in
[2020-07-02 12:33] VITALS: BP 122/73; PULSE 78; RESP 20; O2SAT 97
[2020-07-02 12:43] VITALS: BP 129/85; PULSE 80; RESP 22; O2SAT 98
[2020-07-02 12:53] VITALS: BP 123/82; PULSE 76; RESP 20; O2SAT 100
== END 2020-07-02 13:10 | disposition home or self-care (01) ==
PROVIDERS: PCP Internal Medicine; Visit Provider Internal Medicine Gastroenterology
PROC: 0DJD8ZZ Inspection of Lower Intestinal Tract, Via Natural or Artificial Opening Endoscopic (ICD-10-PCS; CPT 45378; principal; 2020-07-02 12:30)
DX: R19.7 Diarrhea, unspecified (principal); K29.70 Gastritis, unspecified, without bleeding; K64.8 Other hemorrhoids; B96.81 Helicobacter pylori [H. pylori] as the cause of diseases classified elsewhere; I10 Essential (primary) hypertension; E11.40 Type 2 diabetes mellitus with diabetic neuropathy, unspecified; L30.9 Dermatitis, unspecified; M22.40 Chondromalacia patellae, unspecified knee; M17.10 Unilateral primary osteoarthritis, unspecified knee; E55.9 Vitamin D deficiency, unspecified; G47.30 Sleep apnea, unspecified; Z90.49 Acquired absence of other specified parts of digestive tract
CPT/HCPCS: 45380; 88305; J2704; J7120

== ENCOUNTER 2020-07-12 13:20 | Outpatient (CLI) | payer OTHER, SELFPAY ==
[2020-07-15 10:17] LABS: H pylori Ag Stool Detected (Not Detected)
== END 2020-07-12 13:21 | disposition home or self-care (01) ==
PROVIDERS: PCP Internal Medicine; Visit Provider Internal Medicine Gastroenterology
DX: K29.70 Gastritis, unspecified, without bleeding (principal); B96.81 Helicobacter pylori [H. pylori] as the cause of diseases classified elsewhere
CPT/HCPCS: 87338

== ENCOUNTER 2020-08-06 16:42 | Outpatient (CLI) | payer OTHER, SELFPAY ==
--- NOTE | ~2020-08-06 | MR_ITS ---
EXAMINATION: MR knee RT wo con DATE: 08/06/2020 17:24 INDICATION: Right knee pain TECHNIQUE: Magnetic resonance imaging (MRI) of the right knee was performed without intravenous contr ast. Sequences included coronal PD-weighted FSE, coronal PD-weighted FS FSE, sagittal T2-weighted FS E, sagittal PD-weighted FS FSE and axial PD weighted fat saturated FSE. COMPARISON: None. FINDINGS: Medial compartment: Medial meniscus is normal. Deep chondral fissure without degenerative subchondral changes at the ante rior weightbearing medial femoral condyle. Remaining articular cartilage is normal. Lateral compartment: Lateral meniscus is normal. Additional deep chondral fissure without degenerative subchondral changes at the anterior weightbearing lateral femoral condyle. Remaining articular cartilage is normal. Patellofemoral compartment: Large region of deep chondral ulceration with minimal underlying cortical irregularity and scattered subarticular edema at the lateral patellar facet and apical ridge. Additional deep chondral ulceratio n with mild underlying cortical irregularity and subarticular edema along the lateral margin of the l ateral trochlea. Remaining patellofemoral cartilage is relatively preserved. Small marginal osteophyt es are present. Ligaments and tendons: Anterior and posterior cruciate ligaments are normal. The medial collateral ligament and fibular az ateral ligament complex are normal. The extensor mechanism is normal. The visualized medial and later al hamstring tendons as well as the iliotibial band are normal. Fluid: Physiologic amount of fluid in the joint space. No loose osteochondral bodies identified. Osseous/other: Normal marrow signal separate previous noted small foci of degenerative subarticular edema. No fractu re or abnormal marrow replacing process. Subcutaneous varicosities the lateral side of the knee. IMPRESSION: 1. 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 Reviewed, dictated and finalized at location A. IMPRESSION: 1. Mild tricompartmental osteoarthritis with high-grade patellofemoral chondrom alacia and moderate grade chondromalacia with deep chondral fissures along the anterior weightbearing medial and lateral femoral condyles.
== END 2020-08-06 16:43 | disposition home or self-care (01) ==
PROVIDERS: PCP Internal Medicine; Visit Provider Nurse Practitioner Family
DX: M17.11 Unilateral primary osteoarthritis, right knee (principal)
CPT/HCPCS: 73721

== ENCOUNTER → 2020-11-25 02:44 | Outpatient (CLI) | payer OTHER, SELFPAY ==
[2020-11-25 20:44] LABS: SARS-CoV-2 RNA PCR Negative
== END ==
PROVIDERS: PCP Internal Medicine; Visit Provider Nurse Practitioner
DX: R51.9 Headache, unspecified (principal); Z20.822 Contact with and (suspected) exposure to COVID-19
CPT/HCPCS: C9803; U0003; U0005

== ENCOUNTER 2021-01-19 09:52 | Outpatient (CLI) | payer OTHER, SELFPAY ==
--- NOTE | ~2021-01-19 | MM_ITS ---
EXAMINATION: MM screening laya BI w north HISTORY: Screening TECHNIQUE: Craniocaudal and mediolateral oblique 3-D tomosynthesis images were obtained and synthetic 2-D images were generated. CAD analysis was submitted and interpreted. COMPARISON: 12/02/2019 BREAST PARENCHYMAL COMPOSITION: There are scattered areas of fibroglandular density. FINDINGS: There is no evidence of suspicious mass, calcification, or architectural distortion to sugg est malignancy in either breast. There has been no suspicious interval change. IMPRESSION: 1. No mammographic evidence of malignancy. 2. Recommend routine screening mammography in one year. BI-RADS Category 1: Negative Reviewed, dictated and finalized at location A.
== END 2021-01-19 09:53 | disposition home or self-care (01) ==
PROVIDERS: PCP Internal Medicine; Visit Provider Obstetrics & Gynecology Gynecology
DX: Z12.31 Encounter for screening mammogram for malignant neoplasm of breast (principal)
CPT/HCPCS: 77063; 77067

== ENCOUNTER 2021-01-31 17:07 | Outpatient (CLI) | payer OTHER, SELFPAY ==
[2021-02-03 15:38] LABS: H pylori Ag Stool Not Detected (Not Detected)
== END 2021-01-31 17:08 | disposition home or self-care (01) ==
PROVIDERS: PCP Internal Medicine; Visit Provider Nurse Practitioner Family
DX: K29.70 Gastritis, unspecified, without bleeding (principal); B96.81 Helicobacter pylori [H. pylori] as the cause of diseases classified elsewhere
CPT/HCPCS: 87338

== ENCOUNTER 2021-03-22 07:56 | Outpatient (CLI) | payer OTHER, SELFPAY ==
--- NOTE | 2021-04-04 16:12 | WPDSLEEPSTUD ---
Sleep Study Date of Study: 03/22/21 <Connie Funes DO - Last Filed: 04/05/21 13:20> Ordering Provider: Ilana William MD <Connie Funes DO - Last Filed: 04/05/21 13:20> Interpreting Physician: Connie Funes DO <Connie Funes DO - Last Filed: 04/05/21 13:20> Sleep Study Type: Split Polysomnogram <Connie Funes DO - Last Filed: 04/05/21 13:20> Height: 1.73 m <Connie Funes DO - Last Filed: 04/05/21 13:20> Weight: 113.398 kg <Connie Funes DO - Last Filed: 04/05/21 13:20> Body Mass Index: 38.0 <Connie Funes DO - Last Filed: 04/05/21 13:20> Neck Circumference (inches): 16.5 <Connie Funes DO - Last Filed: 04/05/21 13:20> Rising Fawn: 19 <Connie Funes DO - Last Filed: 04/05/21 13:20> Reason for Sleep Study Unrefreshing sleep, hypersomnia <Connie Funes DO - Last Filed: 04/05/21 13:20> Sleep History The patient is a 41-year-old female with hypertension, GERD, type 2 diabetes, neuropathy and previously diagnosed sleep apnea that had a sleep study ordered by her bead cutter. She had a home sleep test on November 06, 2019 that showed an AHI of 13 with the lowest desaturation being 81%. She was prescribed autoPap. 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 She states that she has difficulty falling asleep, staying asleep and unrefreshing sleep. The patient occasionally awakens from sleep short of breath. She frequently awakens at night with heartburn, belching or cough. She constantly snores loud enough that others complain. She constantly has trouble sleeping when she has a cold. She occasionally wakes up gasping for air throughout the night. She occasionally has breathing problems at night observed by others. She constantly sweats excessively at night. She frequently has heart palpitations or irregular heartbeats during the night. She frequently falls asleep during the day but never while driving. She denies having sleep paralysis and cataplexy. She rarely has trouble at school or work due to sleepiness. She occasionally has vivid dream like scenes upon awakening or falling asleep. She denies feeling afraid to go live to sleep. She occasionally has nightmares. She frequently remembers her drains. She occasionally has thoughts racing through her mind. She denies feeling sad or depressed. She rarely feels anxious. She occasionally notices parts of her body jerk. She occasionally kicks during the night. She occasionally has crawling and aching feelings in her legs as well as leg pain during the night. She denies grinding her teeth during sleep and rarely awakens with morning doffing. She is rarely bothered by pain during the day and rarely awakened by pain during the night. She frequently wakes up feeling stiff in the morning with sore and achy muscles. She frequently wakes up with pain in the neck, spine and other joints. She goes to bed between 1 and 2:00 a.m. on the weekdays and between 2 and 4:00 a.m. on the weekends. It takes her a minimum of 2 hours to fall asleep. She typically wakes up twice throughout the night. When she awakens, she will use the restroom, check her phone and eat a snack. It takes him 30 minutes to fall back asleep. She wakes up between 8 9:00 a.m. on the weekdays and between 9 and 10:00 a.m. on the weekends. She typically gets between 5 and 7 hours of sleep per night. She will stay in bed for 15-30 minutes after waking up in the morning. She currently lives with her , children and parents. She denies consuming any caffeinated beverages within 2 hours of bedtime. She does not engage in physical exercise before bedtime. She will read and watch television before falling asleep. She will take naps in the afternoon or the evening but they are not refreshing. She drinks 4-6 caffeinated beverages per day. She denies tobacco, alcohol and recreational drug us
[2021-04-05 13:18] VITALS: BMI 38.0
== END 2021-03-23 06:56 | disposition home or self-care (01) ==
LOC: ANHCSM 07:57
PROVIDERS: PCP Internal Medicine; Visit Provider Internal Medicine Critical Care Medicine
DX: G47.19 Other hypersomnia (principal); G47.33 Obstructive sleep apnea (adult) (pediatric)
CPT/HCPCS: 95811

== ENCOUNTER 2021-05-27 09:07 | Outpatient (CLI) | payer OTHER, SELFPAY ==
--- NOTE | ~2021-05-27 | CT_ITS ---
EXAMINATION: CT sinus wo con DATE: 05/27/2021 09:30 INDICATION: Chronic sinusitis, unspecified TECHNIQUE: Computed tomography (CT) of the paranasal sinuses was performed without intravenous contra st. The dose-length product (DLP) was 271.75 mGy-cm. Iterative reconstruction was used. COMPARISON: None FINDINGS: There is normal development and pneumatization of the paranasal sinuses. There is minimal o pacification of the left ethmoidal air cells. A 10 mm polyp or mucous retention cyst is noted in the right sphenoid sinus. The frontal, left sphenoid, and maxillary sinuses are clear. The bilateral osti omeatal complexes are patent. Visualized soft tissues are unremarkable. IMPRESSION: 1. Mild sinus disease as described above. Reviewed, dictated and finalized at location B. Y EQUIPMENT INSTALLER
--- NOTE | ~2021-05-27 | US_ITS ---
EXAMINATION: US pelvic complete w TV DATE: 05/27/2021 09:58 INDICATION: Abnormal uterine bleeding TECHNIQUE: Multiple transabdominal and endovaginal sonographic images of the pelvis were obtained. COMPARISON: 10/12/2017 FINDINGS: The uterus measures 8.6 x 5.6 x 4.2 cm. The endometrial complex measures 6 mm. The ovaries are not visualized however no adnexal abnormality is seen. There is no free fluid in the pelvis. IMPRESSION: 1. No sonographic correlate for the patient's symptoms. Reviewed, dictated and finalized at location B. TECHNICIAN
== END 2021-05-27 09:08 | disposition home or self-care (01) ==
PROVIDERS: PCP Internal Medicine; Visit Provider Otolaryngology
DX: J32.9 Chronic sinusitis, unspecified (principal); N93.9 Abnormal uterine and vaginal bleeding, unspecified
CPT/HCPCS: 70486; 76830; 76856

== ENCOUNTER 2021-12-20 09:19 | Outpatient (CLI) | payer OTHER, SELFPAY ==
--- NOTE | ~2021-12-20 | XR_ITS ---
EXAMINATION: XR lg joint inject/asp w image DATE: 12/20/2021 10:17 INDICATION: Bilateral hip arthritis TECHNIQUE: A time-out was performed to verify the patient's name, date of , and procedure to b e performed. The procedure including the risks, benefits, and alternatives was discussed with the pat ient. Risks discussed included bleeding and infection. The patient understood the risks and agreed to proceed. Attention was first turned to the right hip joint. The skin overlying the right hip joint w as prepped and draped in usual sterile fashion. Anesthetic was administered with 1% lidocaine subcuta neously. A 22 G needle was advanced under fluoroscopic guidance into the joint. Injection of 1 mL of Omnipaque 240 confirmed intra-articular position of the needle. Subsequently, injectate consisting of 3 mL of a 2:1 mixture of 0.5% Sensorcaine: 80 mg/mL Depo-Medrol for a total dosage of 80 mg Depo-Med rol was instilled. Washout of contrast was seen confirming intra-articular administration. The needle was removed and the entry site was cleaned and dressed. Attention was then turned to the left hip joint. The skin overlying the left hip joint was prepped an d draped in usual sterile fashion. A 22 G needle was advanced under fluoroscopic guidance into the helen int. Injection of 1 mL of Omnipaque 240 confirmed intra-articular position of the needle. Subsequentl y, injectate consisting of 3 mL of a 2:1 mixture of 0.5% Sensorcaine: 80 mg/mL Depo-Medrol for a tota l dosage of 80 mg Depo-Medrol was instilled. Washout of contrast was seen confirming intra-articular administration. The needle was removed and the entry site was cleaned and dressed. There were no imme diate complications. Fluoroscopy exposure time 50 combined procedure was 0.2 minutes. The total numbe r of images was 3. FINDINGS: Real-time fluoroscopy demonstrates the needle in the right hip joint and subsequently in th e left hip joint. Patient's pain prior to procedure:6/10. Patient's pain following the procedure: 0/1 0. IMPRESSION: 1. Successful left hip joint injection of local anesthetic and steroid with decrease in the patient's presenting pain. 2. Successful right hip joint injection of local anesthetic and steroid with decrease in the patient' s presenting pain. Reviewed, dictated and finalized at location A. IMPRESSION: 1. Successful left hip joint injection of local anesthetic and steroid with dec rease in the patient's presenting pain. 2. Successful right hip joint injection of local anesthetic and steroid with de crease in the patient's presenting pain.
--- NOTE | ~2021-12-20 | XR_ITS ---
EXAMINATION: XR lg joint inject/asp w image DATE: 12/20/2021 10:17 INDICATION: Bilateral hip arthritis TECHNIQUE: A time-out was performed to verify the patient's name, date of , and procedure to b e performed. The procedure including the risks, benefits, and alternatives was discussed with the pat ient. Risks discussed included bleeding and infection. The patient understood the risks and agreed to proceed. Attention was first turned to the right hip joint. The skin overlying the right hip joint w as prepped and draped in usual sterile fashion. Anesthetic was administered with 1% lidocaine subcut aneously. A 22 G needle was advanced under fluoroscopic guidance into the joint. Injection of 1 mL of Omnipaque 240 confirmed intra-articular position of the needle. Subsequently, injectate consistin g of 3 mL of a 2:1 mixture of 0.5% Sensorcaine: 80 mg/mL Depo-Medrol for a total dosage of 80 mg Depo -Medrol was instilled. Washout of contrast was seen confirming intra-articular administration. The ne edle was removed and the entry site was cleaned and dressed. Attention was then turned to the left hip joint. The skin overlying the left hip joint was prepped an d draped in usual sterile fashion. A 22 G needle was advanced under fluoroscopic guidance into the helen int. Injection of 1 mL of Omnipaque 240 confirmed intra-articular position of the needle. Subsequen tly, injectate consisting of 3 mL of a 2:1 mixture of 0.5% Sensorcaine: 80 mg/mL Depo-Medrol for a to shaunna dosage of 80 mg Depo-Medrol was instilled. Washout of contrast was seen confirming intra-articula r administration. The needle was removed and the entry site was cleaned and dressed. There were no im mediate complications. Fluoroscopy exposure time 50 combined procedure was 0.2 minutes. The total num serafin of images was 3. FINDINGS: Real-time fluoroscopy demonstrates the needle in the right hip joint and subsequently in th e left hip joint. Patient's pain prior to procedure:6/10. Patient's pain following the procedure: 0/ 10. IMPRESSION: 1. Successful left hip joint injection of local anesthetic and steroid with decrease in the patient's presenting pain. 2. Successful right hip joint injection of local anesthetic and steroid with decrease in the patient' s presenting pain. Reviewed, dictated and finalized at location A. IMPRESSION: 1. Successful left hip joint injection of local anesthetic and steroid with dec rease in the patient's presenting pain. 2. Successful right hip joint injection of local anesthetic and steroid with de crease in the patient's presenting pain.
== END 2021-12-20 09:20 | disposition home or self-care (01) ==
PROVIDERS: PCP Internal Medicine; Visit Provider Nurse Practitioner Family
DX: M16.0 Bilateral primary osteoarthritis of hip (principal)
CPT/HCPCS: 20610; 77002; J1040; Q9966

== ENCOUNTER 2022-02-21 09:57 | Outpatient (CLI) | payer OTHER, SELFPAY ==
--- NOTE | ~2022-02-21 | MM_ITS ---
EXAMINATION: MM screening [facility] [place] HISTORY: Screening mammogram TECHNIQUE: Craniocaudal and mediolateral oblique 3-D tomosynthesis images were obtained and synthetic 2-D images were generated. CAD analysis was submitted and interpreted. COMPARISON: 01/19/2021, 11/22/2019 BREAST PARENCHYMAL COMPOSITION: There are scattered areas of fibroglandular density. FINDINGS: Scattered benign-appearing calcifications are present. No suspicious mass, calcification, o r architectural distortion are identified in either breast to suggest malignancy. There has been no s uspicious interval change. IMPRESSION: 1. No mammographic evidence of malignancy. 2. Recommend routine screening mammography in one year. BI-RADS Category 2: Benign finding(s). Reviewed, dictated and finalized at location A. [employer]W SUPERVISOR
== END 2022-02-21 09:58 | disposition home or self-care (01) ==
PROVIDERS: PCP Nurse Practitioner Family; Visit Provider Nurse Practitioner
DX: Z12.31 Encounter for screening mammogram for malignant neoplasm of breast (principal)
CPT/HCPCS: 77063; 77067

== ENCOUNTER 2022-03-15 08:22 | Outpatient (CLI) | payer OTHER, SELFPAY ==
--- NOTE | 2022-03-15 08:38 | ECG_ITS ---
Measurements Intervals [place] Rate: 84 P: 19 NM: 125 QRS: -19 QRSD: 93 T: 18 QT: 401 QTc: 476 Interpretive Statements SINUS RHYTHM COMPARED TO ECG 08/12/2019 12:00:34 NO SIGNIFICANT CHANGES Electronically Signed On 03-15-2022 13:22:06 B OPERATOR by Tess Pendleton M.D.
[2022-03-15 09:24] LABS: Anion Gap 6 mmol/L (8-16); Blood Urea Nitrogen 5 mg/dL (7-17); Calcium 8.7 mg/dL (8.4-10.2); Carbon Dioxide 31 mmol/L (22-30); Chloride 97 mmol/L (98-107); Estimated Glomerular Filt Rate > 60; Glucose 176 mg/dL (65-110); Potassium 3.6 mmol/L (3.4-5.0); Sodium 134 mmol/L (137-145)
[2022-03-15 09:39] LABS: Hematocrit 38.9 % (37.0-47.0); Hemoglobin 12.9 g/dL (12.0-15.0)
== END 2022-03-15 08:23 | disposition home or self-care (01) ==
PROVIDERS: Anesthesiology; PCP Internal Medicine; Visit Provider Otolaryngology
DX: D64.9 Anemia, unspecified (principal); E11.9 Type 2 diabetes mellitus without complications
CPT/HCPCS: 36415; 80048; 85014; 85018; 93005

== ENCOUNTER 2022-03-17 01:09 | Day surgery (SDC) | payer OTHER, SELFPAY ==
[2022-03-03 15:29] VITALS: BMI 35.0
--- NOTE | 2022-03-03 15:38 | PC.NURSE ---
PRE-OP INSTRUCTIONS, PLEASE READ CAREFULLY Report to the Outpatient Waiting Room, entrance under the green pavilion located off [facility], at time _0830_ on date _03/17/22_. Planned Procedure Time: _1030_. Time changes happen often and if your time is changed the preop area will call you the afternoon before. - You and your visitor will be asked to self-screen and do not enter if you have any COVID symptoms. - Only one visitor is requested with a max of two and NO children visitors are allowed at this time. - The patient visitor may be requested to leave or wait in car when not with patient due to distancing restrictions. - A mask is required within the hospital. Patients may have clear liquids (water, carbonated beverages, clear teas, apple juice) until 3 hours prior to surgery (0730 AM) with a maximum of 20 ounces. - No food from midnight until time of surgery Take the following medications with a SIP of water the morning of surgery: _FLUOXETINE, GABAPENTIN, LABETALOL_ Medications to discontinue _ASPIRIN & NAPROXEN PER DR. CARBAJAL'S INSTRUCTIONS_ Medications to discontinue per ANESTHESIA - _TUMERIC 3 DAYS PRIOR TO SURGERY, Date to take last dose 03/13/22_ Please no make-up, nail [place], hairspray, perfume, deodorant, or body powder the day of surgery. No jewelry (including any body piercings) or valuables the day of surgery, leave them at home. Please take a shower or bath the night before, or the morning of, surgery with an antibacterial soap. Wear comfortable, loose fitting clothing. - Jewelry must be removed prior to entering the operating room. Rings and piercings that are not removed may be cut off. - The hospital will not accept responsibility for valuables. - Please leave all valuables, including medications, at home the day of surgery. If you are going home after surgery, a licensed cattle driver must drive you home. - NO public transportation without another adult if you receive anesthesia. - We recommend that an adult stay with you for 24 hours following discharge. - We also recommend that you do not drive, make important decision, drink alcoholic beverages, or take any drugs that were not prescribed by your health care provider for at least 24 hours after your discharge time. Follow any additional instructions given to you from your surgeon. If you or anyone in your household have experienced Covid symptoms in the past week, please notify your surgeon or the nurse liaison at the phone number below for possible testing. Telephone instructions given to _PATIENT__and asked if any additional questions and then verbalized understanding. Patient advised to call surgeon office or pre surgery nurse liaison [phone] if any additional questions.
--- NOTE | 2022-03-16 17:31 | PM.IMHP ---
H&P: HPI History of Present Illness Date/Time: 03/16/22 17:31 Chief Complaint: nasal obstruction nasal congestion septal deviation turbinate hypertrophy Narrative: planned surgery Review of Systems Review of Systems: All systems reviewed & are unremarkable except as noted in HPI and below [facility] Past Medical History Medical History Allergies Anemia Anxiety Bilateral hip pain Bronchitis Chicken pox Chondromalacia, knee Chondromalacia, patella Daytime sleepiness Degenerative joint disease of knee Eczema Essential hypertension GERD (gastroesophageal reflux disease) Gestational diabetes Heart burn Helicobacter positive gastritis Hyperlipidemia LDL goal <100 Hypertension Insomnia Low vitamin D level Menorrhagia Neuropathy (normal spontaneous vaginal delivery) Obstructive sleep apnea Right knee pain Tendonitis Trochanteric bursitis Trochanteric bursitis, left hip Trochanteric bursitis, right hip Type 2 diabetes mellitus Updated A1C provided 10/14/19: 7.4 Surgical History Surgical History Delivery by section 2014 H/O dilation and curettage 2017 H/O foot surgery heel spur removal H/O prior ablation treatment H/O tubal ligation History of cholecystectomy 2010 Family History Family History Mother Hypertension Sibling Patient's brother is in good health Daughter Meningitis Father Arrhythmia Hypertension Diabetes mellitus Other Family history of arthritis Family history of cardiovascular disease Social History Social History Smoking status: Never smoker Second hand tobacco smoke exposure: No Alcohol intake: never Substance use: never Substance use type: does not use Gender identity (if verbalized by the patient): Female Spiritual care concerns: No Meds Home Medications and Allergies Home Medications Medication Instructions Recorded Confirmed Type aspirin 81 mg tablet,delayed 81 mg PO DAILY 01/28/19 03/03/22 History release (Adult Aspirin Regimen) ascorbic acid (vitamin C) 1,000 mg 1 g PO BID 02/19/20 03/03/22 History tablet Tumeric 1 cap BYMOUTH DAILY 06/22/20 03/03/22 History omeprazole 40 mg capsule,delayed 40 mg PO BID #60 caps 10/25/20 03/03/22 Rx release famotidine 20 mg tablet See Rx Instructions .Route 01/05/21 03/03/22 Rx .COMPLEX #30 tabs lancing device with lancets kit #1 ea 06/02/21 12/15/21 Rx (Just Eat Lancing Device kit) cetirizine 10 mg tablet (Zyrtec) 10 mg PO DAILY 06/03/21 03/03/22 History pen needle, diabetic 32 gauge x #200 ea 06/08/21 12/15/21 Rx 1/4 (BD Ultra-Fine Micro Pen Needle) norethindrone 1 mg-ethinyl 1 tablet PO DAILY 08/18/21 03/03/22 History estradiol 20 mcg (24)-iron 75 mg (4) tablet (Junel Fe 24) labetalol 200 mg tablet 400 mg PO BID #360 tabs 08/29/21 03/03/22 Rx lancets 33 gauge (BoostSuite [place]! ##300 12/05/21 12/15/21 Rx Plus Lancet) atorvastatin 40 mg tablet See Rx Instructions .Route 12/27/21 03/03/22 Rx .COMPLEX #90 tabs blood sugar diagnostic (eSolaruch See Rx Instructions .Route 12/27/21 03/03/22 Rx Ultra Test strips) .COMPLEX #100 strips blood-glucose meter (eSolarTouch #1 ea 12/27/21 12/27/21 Rx Ultra2 Meter) ferrous sulfate 325 mg (65 mg See Rx Instructions .Route 12/27/21 03/03/22 Rx iron) tablet .COMPLEX #30 tabs gabapentin 800 mg tablet 800 mg PO TID 90 days #270 tabs 12/27/21 03/03/22 Rx insulin glargine 100 unit/mL (3 85 unit (0.85 mL) subcut DAILY 12/27/21 03/03/22 Rx mL) subcutaneous pen (Basagl #90 mL KwikPen U-100 Insulin) metformin 1,000 mg tablet 1,000 mg PO BID #180 tabs 12/27/21 03/03/22 Rx hydrochlorothiazide 25 mg tablet See Rx Instructions .Route 01/23/22 03/03/22 Rx .COMPLEX #90 tab
[2022-03-17] VITALS (9 sets, daily range): BP systolic 116–164; BP diastolic 65–107; PULSE 74–99; RESP 11–18; TEMP 36.3–36.4; O2SAT 95–100
--- NOTE | 2022-03-17 07:15 | WPDHPUPDATE1 ---
History and Physical Update Update Date/Time: 03/17/22 07:15 History and Physical has been reviewed, including an updated exam of the patient. There are NO changes in the patient's condition. Risks, benefits, and alternatives have been discussed and questions answered. Patient agrees to proceed with procedure.
[2022-03-17] MEDS: LACTATED RINGERS 1,000 ML 30 ML IV CONT ×2 (07:29→10:35)
[2022-03-17] MEDS: ACETAMINOPHEN 500 MG TABLET 1000 MG PO (07:30)
[2022-03-17 07:41] LABS: Glucose Point of Care 172 mg/dl (65-105)
--- NOTE | 2022-03-17 07:46 | WPDANESEPPF ---
Anes - Initial Pre Proc Eval Procedure: Operation Date: 03/17/22 09:00 Proposed Procedures p Endoscopic Septoplasty - Erlin Pappas MD s Bilateral Inferior Turbinectomy with Outfracture - Erlin Pappas MD Date/Time: 03/17/22 07:46 Surgeon: Erlin Pappas MD Pre Op Diagnosis: Septral Deviation, Turbinate Hypertrophy Patient Data Age: 42 Gender: F Height: 1.73 m Weight: 108 kg Allergies Allergy/AdvReac Type Severity Reaction Status Date / Time coconut Allergy Severe SWELLING, Verified 03/17/22 07:09 RESPIRATORY DISTRESS exenatide AdvReac Mild DIARRHEA, Verified 03/17/22 07:09 STOMACH CRAMPING Home Medications Medication Instructions Recorded Confirmed Type aspirin 81 mg tablet,delayed 81 mg PO DAILY 01/28/19 03/17/22 History release (Adult Aspirin Regimen) ascorbic acid (vitamin C) 1,000 mg 1 g PO BID 02/19/20 03/17/22 History tablet Tumeric 1 cap BYMOUTH DAILY 06/22/20 03/17/22 History omeprazole 40 mg capsule,delayed 40 mg PO BID #60 caps 10/25/20 03/17/22 Rx release famotidine 20 mg tablet See Rx Instructions .Route 01/05/21 03/17/22 Rx .COMPLEX #30 tabs lancing device with lancets kit #1 ea 06/02/21 03/17/22 Rx (Kingmaker Lancing Device kit) cetirizine 10 mg tablet (Zyrtec) 10 mg PO DAILY 06/03/21 03/17/22 History pen needle, diabetic 32 gauge x #200 ea 06/08/21 03/17/22 Rx 1/4 (BD Ultra-Fine Micro Pen Needle) norethindrone 1 mg-ethinyl 1 tablet PO DAILY 08/18/21 03/17/22 History estradiol 20 mcg (24)-iron 75 mg (4) tablet (Junel Fe 24) labetalol 200 mg tablet 400 mg PO BID #360 tabs 08/29/21 03/17/22 Rx lancets 33 gauge (Actionsoft [place] ##300 12/05/21 03/17/22 Rx Plus Lancet) atorvastatin 40 mg tablet See Rx Instructions .Route 12/27/21 03/17/22 Rx .COMPLEX #90 tabs blood sugar diagnostic (OneTouch See Rx Instructions .Route 12/27/21 03/17/22 Rx Ultra Test strips) .COMPLEX #100 strips blood-glucose meter (OneTouch #1 ea 12/27/21 03/17/22 Rx Ultra2 Meter) ferrous sulfate 325 mg (65 mg See Rx Instructions .Route 12/27/21 03/17/22 Rx iron) tablet .COMPLEX #30 tabs gabapentin 800 mg tablet 800 mg PO TID 90 days #270 tabs 12/27/21 03/17/22 Rx insulin glargine 100 unit/mL (3 85 unit (0.85 mL) subcut DAILY 90 12/27/21 03/17/22 Rx mL) subcutaneous pen ( #90 mL KwikPen U-100 Insulin) metformin 1,000 mg tablet 1,000 mg PO BID #180 tabs 12/27/21 03/17/22 Rx hydrochlorothiazide 25 mg tablet See Rx Instructions .Route 01/23/22 03/17/22 Rx .COMPLEX #90 tabs losartan 50 mg tablet See Rx Instructions .Route 01/23/22 03/17/22 Rx .COMPLEX #90 tabs dulaglutide 0.75 mg/0.5 mL 0.75 mg (0.5 mL) subcut WEEKLY 4 02/22/22 03/17/22 Rx subcutaneous pen injector weeks #2 mL (Trulicity) cyclobenzaprine 10 mg tablet See Rx Instructions .Route 02/27/22 03/17/22 Rx .COMPLEX #30 tabs labetalol 100 mg tablet See Rx Instructions .Route 02/28/22 03/17/22 Rx .COMPLEX #60 tabs dulaglutide 1.5 mg/0.5 mL See Rx Instructions .Route .COMPLEX 03/03/22 03/17/22 History subcutaneous pen injector (Trulicity) fluoxetine 20 mg capsule (Prozac) 20 mg PO QAM 03/03/22 03/17/22 History mupirocin 2 % topical ointment 1 applic topical BID PRN DRY NOSE 03/03/22 03/17/22 History naproxen 500 mg tablet See Rx Instructions .Route 03/03/22 03/17/22 History .COMPLEX PRN Pain Laboratory Tests 03/17/22 07:28 POC Capillary Glucose 172 mg/dl H mg/dl (65-105) Patient hx anesthesia problems: none Family hx anesthesia problems: none Results Review: All pre-operative results and documents have been reviewed as part of the pre-operative evaluation. [facility] Past Medical History Medical History Allergies Anemia Anxiety Bilateral hip pain Bronchitis Chicken pox Chondromalacia, knee Chondromalacia, patella Daytime sleepiness Degenerative joint disease of
[2022-03-17] MEDS: ceFAZolin 2 GM/D5W 50 ML 2 GM/50 ML BAG IVPB (08:54)
[2022-03-17] MEDS: OXYMETAZOLINE HCL 0.05% NAS 15 ML BTL (*BKC) 1 SPRAY NASAL (09:02)
[2022-03-17 10:55] LABS: Glucose Point of Care 187 mg/dl (65-105)
--- NOTE | 2022-03-17 10:56 | W.PM.PROC2 ---
Procedure Note - Detailed Date of Procedure 03/17/22 Pre-op Diagnosis Septral Deviation, Turbinate Hypertrophy Post-op Diagnosis Same Procedure Performed [place] assisted septoplasty turbinate reduction Surgeon Erlin Pappas MD Anesthesia General Indications see above Findings severely deviated to the right unfortunate bilateral opposing perforations repaired with quilting stitch and cartilage graft corrected well otherwise Description of Procedure patient identified consent verified. Patient brought operating room. Time-out performed. General anesthesia induced endotracheal tube secured airway. Patient prepped draped position 2nd time-out performed. 0 degree endoscope utilized 10 cc 1% lidocaine 1 100,000 parts epinephrine injected deep to the septum as well as anterior as inferior turbinates [place] incision made left-sided left nasal septal flap elevated unfortunate there was a linear perforation over a caudal deflection of deviated cartilage removed with Daniel forceps Reggie Becerra forceps and osteotome following elevation of the right-sided nasal septal flap. There was also a small perforation over the right-sided spur. Unfortunate the small perforation on the right appose the linear perforation on the left. Turbinates reduced in the submucosal plane with microdebrider turbinate blade outfractured with [place] good reduction. Quilting stitch in cartilage graft utilized to repair the perforation [place] incision closed with 3 interrupted 5 0 fast gut sutures. Pena splints placed sutured anteriorly using a 3-0 mattressed nylon suture. No other complications. Blood loss 25 cc. I performed all dictated portions care the patient given Anesthesiology patient taken to PACU. Estimated Blood Loss 25 Drains No Packing No Pathology None sent Complications No immediate complications Condition Stable Disposition PACU
== END 2022-03-17 12:44 | disposition home or self-care (01) ==
PROVIDERS: PCP Internal Medicine; Visit Provider Otolaryngology
PROC: (CPT 30520; principal; 2022-03-17 09:00)
PROC: (CPT 30520; 2022-03-17 09:00)
DX: J34.2 Deviated nasal septum (principal); J34.3 Hypertrophy of nasal turbinates; J34.89 Other specified disorders of nose and nasal sinuses; R09.81 Nasal congestion; I10 Essential (primary) hypertension; E78.5 Hyperlipidemia, unspecified; E11.40 Type 2 diabetes mellitus with diabetic neuropathy, unspecified; G47.33 Obstructive sleep apnea (adult) (pediatric); F41.9 Anxiety disorder, unspecified; K21.9 Gastro-esophageal reflux disease without esophagitis; E66.9 Obesity, unspecified; Z68.36 Body mass index [BMI] 36.0-36.9, adult; Z79.82 Long term (current) use of aspirin; Z79.4 Long term (current) use of insulin; Z79.84 Long term (current) use of oral hypoglycemic drugs; Z79.899 Other long term (current) drug therapy
CPT/HCPCS: 30520; 30630; 30140; 82948; A9270; J0330; J0690; J1100; J2250; J2405; J2704; J3010; J7120

== ENCOUNTER 2023-01-01 13:02 | Outpatient (CLI) | payer OTHER, SELFPAY ==
--- NOTE | ~2023-01-01 | US_ITS ---
EXAMINATION: US pelvic complete DATE: 01/01/2023 13:49 INDICATION: Abnormal uterine bleeding. TECHNIQUE: Multiple transabdominal sonographic images of the pelvis were obtained. COMPARISON: Ultrasound 05/27/2021 FINDINGS: The uterus measures 9.9 x 3.1 x 5.9 cm. There is no free fluid in the pelvis. The endometrial complex measures 4 mm in thickness. The right ovary measures 3.4 x 1.8 x 3.5 cm. The left ovary measures 4.0 x 2.1 x 2.9 cm. There is normal vascular flow in the ovaries. IMPRESSION: 1. Normal pelvis. Reviewed, dictated and finalized at location E. IMPRESSION: 1. Normal pelvis.
== END 2023-01-01 13:03 | disposition home or self-care (01) ==
PROVIDERS: PCP Internal Medicine; Visit Provider Nurse Practitioner
DX: N93.8 Other specified abnormal uterine and vaginal bleeding (principal)
CPT/HCPCS: 76856

== ENCOUNTER 2023-02-12 12:41 | Outpatient (CLI) | payer OTHER, SELFPAY ==
[2023-02-12 19:20] LABS: Anion Gap 10 mmol/L (8-16); Blood Urea Nitrogen 8 mg/dL (7-17); Calcium 9.5 mg/dL (8.4-10.2); Carbon Dioxide 24 mmol/L (22-30); Chloride 103 mmol/L (98-107); Estimated Glomerular Filt Rate > 60; Glucose 132 mg/dL (65-110); Potassium 4.2 mmol/L (3.4-5.0); Sodium 137 mmol/L (137-145)
== END 2023-02-12 12:42 | disposition home or self-care (01) ==
LOC: ANHGOSHLAB 12:43
PROVIDERS: PCP Internal Medicine; Visit Provider Anesthesiology
DX: E11.65 Type 2 diabetes mellitus with hyperglycemia (principal)
CPT/HCPCS: 36415; 80048

== ENCOUNTER 2023-02-19 02:25 | Day surgery (SDC) | payer OTHER, SELFPAY ==
[2023-02-07 11:51] VITALS: BMI 33.7
--- NOTE | 2023-02-07 11:56 | PC.NURSE ---
Report to the Outpatient Waiting Room, entrance under the green pavilion located off [facility], at time 8:30 on date 02/19/23. Planned Procedure Time: 10:30. Time changes happen often and if your time is changed the preop area will call you the afternoon before. - You and your visitor will be asked to self-screen and do not enter if you have any COVID symptoms. - A mask is optional within the hospital at this time. Patients may have clear liquids (water, carbonated beverages, clear teas, apple juice) until 3 hours prior to surgery (7:30) with a maximum of 20 ounces. - No food from midnight until time of surgery Take the following medications with a SIP of water the morning of surgery: FLUOXETINE, GABAPENTIN, LABETALOL DO NOT STOP ANY OF YOUR OTHER PRESCRIPTION MEDICATIONS PRIOR TO SURGERY ?EXCEPT THE FOLLOWING Medications to discontinue per physician: VITAMINS/SUPPLEMENTS Date to take last dose: 02/15/23 Please no make-up, nail yi, hairspray, perfume, deodorant, or body powder the day of surgery. No jewelry (including any body piercings) or valuables the day of surgery, leave them at home. Please take a shower or bath the night before, or the morning of, surgery with an antibacterial soap. Wear comfortable, loose fitting clothing. - Jewelry must be removed prior to entering the operating room. Rings and piercings that are not removed may be cut off. - The hospital will not accept responsibility for valuables. - Please leave all valuables, including medications, at home the day of surgery. If you are going home after surgery, a licensed electric train driver must drive you home. - NO public transportation without another adult if you receive anesthesia. - We recommend that an adult stay with you for 24 hours following discharge. - We also recommend that you do not drive, make important decision, drink alcoholic beverages, or take any drugs that were not prescribed by your health care provider for at least 24 hours after your discharge time. Follow any additional instructions given to you from your surgeon. If you or anyone in your household have experienced Covid symptoms in the past week, please notify your surgeon or the nurse liaison at the phone number below for possible testing. Telephone instructions given to PT - RANDY HARRELL and asked if any additional questions and then verbalized understanding. Patient advised to call surgeon office or pre surgery nurse liaison [phone] if any additional questions.
--- NOTE | 2023-02-19 07:32 | WPDHPUPDATE1 ---
History and Physical Update Update Date/Time: 02/19/23 07:32 History and Physical has been reviewed, including an updated exam of the patient. There are NO changes in the patient's condition. Risks, benefits, and alternatives have been discussed and questions answered. Patient agrees to proceed with procedure.
--- NOTE | 2023-02-19 07:32 | PM.HPGS ---
History of Present Illness History of Present Illness Consent: Risks, benefits, and alternatives have been discussed and questions answered. Patient agrees to proceed with procedure. Chief complaint: Abnormal Uterine Bleeding Narrative: Armida Vega is a 42 year old female with prolonged bleeding episodes. Patient has been on several control pills with continued prolonged episodes of bleeding up to 15 days. Patient is status post prior tubal ligation with endometrial ablation that failed. She has been on oral contraceptives to attempt to control the bleeding and this is not successful either. It was recommended to proceed with D&C hysteroscopy to evaluate the endometrium as it has been over 3 years. Risks of infection, bleeding, perforation, and possible pathology are reviewed. Patient voices understanding and agrees to proceed. Review of Systems Review of Systems: not repeated day of surgery; patient states no changes in status [facility] Past Medical History Medical History (Updated 02/19/23 @ 07:37 by Valerie Daley MD) Allergies Anemia Anxiety Bilateral hip pain Chronic sinusitis Degenerative joint disease of knee Eczema Essential hypertension GERD (gastroesophageal reflux disease) Hearing loss, bilateral Heart burn Helicobacter positive gastritis Hyperlipidemia LDL goal <100 Hypertension Insomnia Low vitamin D level Neuropathy (normal spontaneous vaginal delivery) Obstructive sleep apnea Type 2 diabetes mellitus Updated A1C provided 10/14/19: 7.4 Surgical History Surgical History (Updated 02/19/23 @ 07:36 by Valerie Daley MD) Delivery by section 2014 H/O dilation and curettage 2017 H/O foot surgery heel spur removal H/O prior ablation treatment 2019 H/O tubal ligation 2019 History of cholecystectomy 2010 Family History Family History Mother Hypertension Sibling Patient's brother is in good health Daughter Meningitis Father Arrhythmia Hypertension Diabetes mellitus Other Family history of arthritis Family history of cardiovascular disease Social History Social History Smoking status: Never smoker Second hand tobacco smoke exposure: No Alcohol intake: never Substance use: never Substance use type: does not use Lack of Transportation: No Lack of Food: Never True Current Housing: I Have Housing Concerned About Future Housing: No Difficulty Paying Gas/Electric Bills: No Difficulty Paying for Meds: No Currently Unemployed: No Education: Associate Degree Difficulty w/ Childcare or Family Care: No Living arrangements: with family Gender identity (if verbalized by the patient): Female Spiritual care concerns: No Meds Home Medications and Allergies Home Medications Medication Instructions Recorded Confirmed Type Tumeric 1 cap BYMOUTH DAILY 06/22/20 02/07/23 History omeprazole 40 mg capsule,delayed 40 mg PO BID #60 caps 10/25/20 02/07/23 Rx release famotidine 20 mg tablet See Rx Instructions .Route 01/05/21 02/07/23 Rx .COMPLEX #30 tabs lancing device with lancets kit #1 ea 06/02/21 01/11/23 Rx (flo.do Lancing Device kit) cetirizine 10 mg tablet (Zyrtec) 10 mg PO DAILY 06/03/21 02/07/23 History blood sugar diagnostic (OneTouch See Rx Instructions .Route 12/27/21 01/11/23 Rx Ultra Test strips) .COMPLEX #100 strips blood-glucose meter (VendRxTouch #1 ea 12/27/21 01/11/23 Rx Ultra2 Meter) fluoxetine 20 mg capsule (Prozac) 20 mg PO QAM 03/03/22 02/07/23 History mupirocin 2 % topical ointment 1 applic topical BID PRN DRY NOSE 03/03/22 02/07/23 History lancets 33 gauge (VendRxToAnipipo #300 ea 03/27/22 01/11/23 Rx Plus Lancet) dapagliflozin propanediol 10 mg 10 mg PO QAM 90 days #90 tabs 05/11/22 02/07/23 Rx tablet (Farxiga) labetalol 200 mg tablet 400 mg PO BID #
[2023-02-19] MEDS: LACTATED RINGERS 1,000 ML 30 ML IV CONT (07:45)
[2023-02-19 07:47] LABS: Glucose Point of Care 156 mg/dl (65-105)
--- NOTE | 2023-02-19 08:10 | WPDANESEPPF ---
Anes - Initial Pre Proc Eval Procedure: Operation Date: 02/19/23 09:00 Proposed Procedures p Hysteroscopy Dilation and Curettage - Valerie Daley MD Date/Time: 02/19/23 08:10 Surgeon: Valerie Daley MD Pre Op Diagnosis: Abnormal Uterine Bleeding Patient Data Age: 42 Gender: F Height: 1.73 m Weight: 100.7 kg Allergies Allergy/AdvReac Type Severity Reaction Status Date / Time coconut Allergy Severe SWELLING, Verified 02/19/23 07:49 RESPIRATORY DISTRESS exenatide AdvReac Mild DIARRHEA, Verified 02/19/23 07:49 STOMACH CRAMPING Home Medications Medication Instructions Recorded Confirmed Type Tumeric 1 cap BYMOUTH DAILY 06/22/20 02/07/23 History lancing device with lancets kit #1 ea 06/02/21 01/11/23 Rx (SHAPE Lancing Device kit) cetirizine 10 mg tablet (Zyrtec) 10 mg PO DAILY 06/03/21 02/07/23 History blood sugar diagnostic (CumuluxTouch See Rx Instructions .Route 12/27/21 01/11/23 Rx Ultra Test strips) .COMPLEX #100 strips blood-glucose meter (CumuluxTouch #1 ea 12/27/21 01/11/23 Rx Ultra2 Meter) fluoxetine 20 mg capsule (Prozac) 20 mg PO QAM 03/03/22 02/07/23 History mupirocin 2 % topical ointment 1 applic topical BID PRN DRY NOSE 03/03/22 02/07/23 History lancets 33 gauge (CumuluxTouch Delica #300 ea 03/27/22 01/11/23 Rx Plus Lancet) dapagliflozin propanediol 10 mg 10 mg PO QAM 90 days #90 tabs 05/11/22 02/07/23 Rx tablet (Farxiga) labetalol 200 mg tablet 400 mg PO BID #360 tabs 06/13/22 02/07/23 Rx losartan 50 mg tablet See Rx Instructions .Route 06/13/22 02/07/23 Rx .COMPLEX #90 tabs ferrous sulfate 325 mg (65 mg See Rx Instructions .Route 11/13/22 02/07/23 Rx iron) tablet .COMPLEX #30 tabs fluticasone propionate 50 1 - 2 spray intranasal BID #16 mL 11/14/22 02/07/23 Rx mcg/actuation nasal spray,suspension (Flonase Allergy Relief) blood-glucose sensor (FreeStyle #6 ea 01/02/23 01/11/23 Rx Alecia 3 Sensor device) metformin 1,000 mg tablet 1,000 mg PO BID #180 tabs 01/02/23 02/07/23 Rx ostomy supplies (Skin Prep Wipes) #50 ea 01/02/23 01/11/23 Rx pen needle, diabetic 32 gauge x #200 ea 01/02/23 01/11/23 Rx 5/32 (TRUEplus Pen Needle) tirzepatide 5 mg/0.5 mL 5 mg (0.5 mL) subcut WEEKLY #2 mL 01/02/23 02/07/23 Rx subcutaneous pen injector ([place]) atorvastatin 40 mg tablet See Rx Instructions .Route 01/08/23 02/07/23 Rx .COMPLEX #90 tabs gabapentin 800 mg tablet 800 mg PO TID 90 days #270 tabs 01/08/23 02/07/23 Rx amitriptyline 25 mg tablet 25 mg PO QHS 02/01/23 02/07/23 History famotidine 20 mg tablet 20 mg PO BID 02/19/23 02/19/23 History fluoxetine 10 mg tablet 10 mg PO DAILY 02/19/23 02/19/23 History insulin glargine 100 unit/mL (3 70 unit subcut DAILY 02/19/23 02/19/23 History mL) subcutaneous pen (Basaglar KwikPen U-100 Insulin) omeprazole 20 mg capsule,delayed 20 mg PO BID 02/19/23 02/19/23 History release Laboratory Tests 02/19/23 07:44 POC Capillary Glucose 156 H mg/dl (65-105) Patient hx anesthesia problems: none Family hx anesthesia problems: none Results Review: All pre-operative results and documents have been reviewed as part of the pre-operative evaluation. [facility] Past Medical History Medical History Allergies Anemia Anxiety Bilateral hip pain Chronic sinusitis Degenerative joint disease of knee Eczema Essential hypertension GERD (gastroesophageal reflux disease) Hearing loss, bilateral Heart burn Helicobacter positive gastritis Hyperlipidemia LDL goal <100 Hypertension Insomnia Low vitamin D level Neuropathy (normal spontaneous vaginal delivery) Obstructive sleep apnea Type 2 diabetes mellitus Updated A1C provided 10/14/19: 7.4 Surgical History Surgical History Delivery by section 2014 H/O dilation and curettage 2018 H/O foot
[2023-02-19 08:20] VITALS: BP 105/70; PULSE 89; RESP 18; TEMP 36.3; O2SAT 97
--- NOTE | 2023-02-19 09:07 | W.PM.PROC2 ---
Procedure Note - Detailed Date of Procedure 02/19/23 Pre-op Diagnosis Abnormal Uterine Bleeding Post-op Diagnosis Same Procedure Performed D&C hysteroscopy Surgeon Valerie Daley MD Anesthesia MAC Findings uterus sounds to 8cm and appears to have a good ablation effect; internal cervical stenosis Description of Procedure The patient is taken to operating room and placed under anesthesia in the dorsal lithotomy position. She was prepped and draped in the usual sterile fashion. [place] speculum was placed in vagina and the cervix grasped on the anterior lip with a tenaculum. The uterus is sounded to 8cm. The diagnostic hysteroscope is placed and the internal cervical stenosis is able to be passed with the hysteroscope guiding visually. The endometrium has a good ablation effect with no obvious endometrial tissue. There was a large amount a copious bloody mucus discharge upon opening the cervical canal. No cervical lesion. The hysteroscope was removed. The 00 sharp curette is used to curette the endometrium until a good uterine cry was noted in all areas. Minimal material was obtained. Instrument, sponge, and needle counts correct per the OR staff. Patient was awakened from anesthesia and taken to recovery in stable condition. Estimated Blood Loss 5 Drains No Packing No Pathology Yes ( Endometrial curettings) Complications No immediate complications Condition Stable Disposition PACU
[2023-02-19 09:10] VITALS: BP 94/61; PULSE 80; RESP 14; O2SAT 96
[2023-02-19 09:26] LABS: Glucose Point of Care 137 mg/dl (65-105)
--- NOTE | 2023-02-19 09:30 | SUR.PHASEII ---
0929 - accucheck was 137.
[2023-02-19 09:40] VITALS: BP 111/71; PULSE 75; RESP 16
[2023-02-19 10:00] VITALS: BP 118/76; PULSE 70; RESP 16
== END 2023-02-19 10:05 | disposition home or self-care (01) ==
PROVIDERS: PCP Internal Medicine; Visit Provider Obstetrics & Gynecology Gynecology
PROC: 0U5B8ZZ Destruction of Endometrium, Via Natural or Artificial Opening Endoscopic (ICD-10-PCS; CPT 58563; principal; 2023-02-19 09:00)
DX: N92.0 Excessive and frequent menstruation with regular cycle (principal); I10 Essential (primary) hypertension; K21.9 Gastro-esophageal reflux disease without esophagitis; E78.5 Hyperlipidemia, unspecified; E11.9 Type 2 diabetes mellitus without complications
CPT/HCPCS: 58558; 82948; 88305; A9270; J2250; J2405; J2704; J3010; J7120

== ENCOUNTER 2023-03-15 07:41 | Outpatient (CLI) | payer OTHER, SELFPAY ==
--- NOTE | 2023-03-15 07:56 | ECG_ITS ---
Measurements Intervals [place] Rate: 82 P: 28 AK: 119 QRS: -14 QRSD: 86 T: 18 QT: 387 QTc: 455 Interpretive Statements SINUS RHYTHM WITH SHORT [place] INTERVAL COMPARED TO ECG 03/15/2022 09:05:05 NO SIGNIFICANT CHANGES Electronically Signed On 03-15-2023 9:18:03 LEGAL PROCESS SPECIALIST by Tess Pendleton M.D.
[2023-03-15 08:12] LABS: Hematocrit 41.6 % (37.0-47.0); Hemoglobin 13.2 g/dL (12.0-15.0)
[2023-03-15 08:23] LABS: INR 0.9; Prothrombin Time 12.4 Seconds (11.1-14.7)
[2023-03-15 08:24] LABS: Partial Thromboplastin Time 27.6 SECONDS (22.3-36.8)
== END 2023-03-15 07:42 | disposition home or self-care (01) ==
LOC: ANHSURGERY 07:46
PROVIDERS: Anesthesiology; PCP Internal Medicine; Visit Provider Otolaryngology
DX: R74.8 Abnormal levels of other serum enzymes (principal); D64.9 Anemia, unspecified; E78.5 Hyperlipidemia, unspecified
CPT/HCPCS: 36415; 85014; 85018; 85610; 85730; 93005

== ENCOUNTER 2023-03-20 00:07 | Day surgery (SDC) | payer OTHER, SELFPAY ==
[2023-03-07 14:44] VITALS: BMI 34.2
--- NOTE | 2023-03-07 14:55 | PC.NURSE ---
Report to the Outpatient Waiting Room, entrance under the green pavilion located off [facility], at time __0645 on date ___03/20/23____. Planned Procedure Time: _0845 . Time changes happen often and if your time is changed the preop area will call you the afternoon before. - You and your visitor will be asked to self-screen and do not enter if you have any COVID symptoms. - A mask is optional within the hospital at this time. Patients may have clear liquids (water, carbonated beverages, clear teas, apple juice) until 3 hours prior to surgery with a maximum of 20 ounces. - No food from midnight until time of surgery Take the following medications with a SIP of water the morning of surgery: ___Prozac, labetalol, gabapentin DO NOT STOP ANY OF YOUR OTHER PRESCRIPTION MEDICATIONS PRIOR TO SURGERY ?EXCEPT THE FOLLOWING Medications to hold per physician ___Losartan, oral and sub-Q diabetic medications day of procedure. Vitamins and supplements 3 days prior to procedure. Please no make-up, nail serbian, hairspray, perfume, deodorant, or body powder the day of surgery. No jewelry (including any body piercings) or valuables the day of surgery, leave them at home. Please take a shower or bath the night before, or the morning of, surgery with an antibacterial soap. Wear comfortable, loose fitting clothing. Children are encouraged to wear pajamas. - Jewelry must be removed prior to entering the operating room. Rings and piercings that are not removed may be cut off. - The hospital will not accept responsibility for valuables. - Please leave all valuables, including medications, at home the day of surgery. If you are going home after surgery, a licensed form setter/driver must drive you home. - NO public transportation without another adult if you receive anesthesia. - We recommend that an adult stay with you for 24 hours following discharge. - We also recommend that you do not drive, make important decision, drink alcoholic beverages, or take any drugs that were not prescribed by your health care provider for at least 24 hours after your discharge time. Follow any additional instructions given to you from your surgeon. If you or anyone in your household have experienced Covid symptoms in the past week, please notify your surgeon or the nurse liaison at the phone number below for possible testing. Telephone instructions given to __Armida Vega____and asked if any additional questions and then verbalized understanding. Patient advised to call surgeon office or pre surgery nurse liaison [phone] if any additional questions.
--- NOTE | 2023-03-19 17:08 | PM.IMHP ---
H&P: HPI History of Present Illness Date/Time: 03/19/23 17:08 Chief Complaint: recurrent tonsillitis chronic tonsillitis tonsillar hypertrophy Narrative: planned procedure Review of Systems Review of Systems: All systems reviewed & are unremarkable except as noted in HPI and below PMFSH Past Medical History Medical History Allergies Anemia Anxiety Bilateral hip pain Chronic sinusitis Degenerative joint disease of knee Eczema Essential hypertension GERD (gastroesophageal reflux disease) Hearing loss, bilateral Heart burn Helicobacter positive gastritis Hyperlipidemia LDL goal <100 Hypertension Insomnia Low vitamin D level Neuropathy (normal spontaneous vaginal delivery) Obstructive sleep apnea Type 2 diabetes mellitus Updated A1C provided 10/14/19: 7.4 Surgical History Surgical History Delivery by section 2014 H/O dilation and curettage 2017 H/O foot surgery heel spur removal H/O prior ablation treatment 2019 H/O tubal ligation 2019 History of cholecystectomy 2010 Family History Family History Mother Hypertension Sibling Patient's brother is in good health Daughter Meningitis Father Arrhythmia Hypertension Diabetes mellitus Other Family history of arthritis Family history of cardiovascular disease Social History Social History Smoking status: Never smoker Second hand tobacco smoke exposure: No Alcohol intake: never Substance use: never Substance use type: does not use Lack of Transportation: No Lack of Food: Never True Current Housing: I Have Housing Concerned About Future Housing: No Difficulty Paying Gas/Electric Bills: No Difficulty Paying for Meds: No Currently Unemployed: No Education: Associate Degree Difficulty w/ Childcare or Family Care: No Living arrangements: with family Gender identity (if verbalized by the patient): Female Spiritual care concerns: No Meds Home Medications and Allergies Home Medications Medication Instructions Recorded Confirmed Type Tumeric 1 cap BYMOUTH DAILY 06/22/20 03/07/23 History lancing device with lancets kit #1 ea 06/02/21 03/07/23 Rx (OneTouch Delica Lancing Device kit) cetirizine 10 mg tablet (Zyrtec) 10 mg PO DAILY 06/03/21 03/07/23 History blood sugar diagnostic (OneTouch See Rx Instructions .Route 12/27/21 03/07/23 Rx Ultra Test strips) .COMPLEX #100 strips blood-glucose meter (OneTouch #1 ea 12/27/21 03/07/23 Rx Ultra2 Meter) mupirocin 2 % topical ointment 1 applic topical BID PRN DRY NOSE 03/03/22 03/07/23 History lancets 33 gauge (OneTouch Delica #300 ea 03/27/22 03/07/23 Rx Plus Lancet) dapagliflozin propanediol 10 mg 10 mg PO QAM 90 days #90 tabs 05/11/22 03/07/23 Rx tablet (Farxiga) labetalol 200 mg tablet 400 mg PO BID #360 tabs 06/13/22 03/07/23 Rx ferrous sulfate 325 mg (65 mg See Rx Instructions .Route 11/13/22 03/07/23 Rx iron) tablet .COMPLEX #30 tabs blood-glucose sensor (FreeStyle #6 ea 01/02/23 03/07/23 Rx Alecia 3 Sensor device) metformin 1,000 mg tablet 1,000 mg PO BID #180 tabs 01/02/23 03/07/23 Rx ostomy supplies (Skin Prep Wipes) #50 ea 01/02/23 03/07/23 Rx pen needle, diabetic 32 gauge x #200 ea 01/02/23 03/07/23 Rx 5/32 (TRUEplus Pen Needle) tirzepatide 5 mg/0.5 mL 5 mg (0.5 mL) subcut WEEKLY #2 mL 01/02/23 03/07/23 Rx subcutaneous pen injector ([place]) atorvastatin 40 mg tablet See Rx Instructions .Route 01/08/23 03/07/23 Rx .COMPLEX #90 tabs gabapentin 800 mg tablet 800 mg PO TID 90 days #270 tabs 01/08/23 03/07/23 Rx amitriptyline 25 mg tablet 25 mg PO QHS 02/01/23 03/07/23 History L.acidophil-L.casei-B.bifid-B.longum-FOS 1 cap PO DAILY 02/19/23 03/07/23 History 2 billion cell-50 mg capsule
[2023-03-20] VITALS (11 sets, daily range): BP systolic 97–140; BP diastolic 63–93; PULSE 78–95; RESP 12–21; TEMP 36.1–36.5; O2SAT 94–99
[2023-03-20] MEDS: ACETAMINOPHEN 500 MG TABLET 1000 MG PO (07:10)
--- NOTE | 2023-03-20 07:26 | WPDHPUPDATE1 ---
History and Physical Update Update Date/Time: 03/20/23 07:26 History and Physical has been reviewed, including an updated exam of the patient. There are NO changes in the patient's condition. Risks, benefits, and alternatives have been discussed and questions answered. Patient agrees to proceed with procedure.
[2023-03-20] MEDS: SCOPOLAMINE 1 MG PATCH 1 PATCH TRANSDERM (07:43)
--- NOTE | 2023-03-20 07:49 | WPDANESEPPF ---
Anes - Initial Pre Proc Eval Procedure: Operation Date: 03/20/23 08:45 Proposed Procedures p Tonsillectomy - Erlin Pappas MD Date/Time: 03/20/23 07:49 Surgeon: Erlin Pappas MD Pre Op Diagnosis: recurrent tonsillitis Patient Data Age: 43 Gender: F Height: 1.73 m Weight: 102.06 kg Last Vital Signs O2 Del Method Room Air 03/07/23 14:44 Allergies Allergy/AdvReac Type Severity Reaction Status Date / Time coconut Allergy Severe SWELLING, Verified 03/20/23 07:05 RESPIRATORY DISTRESS exenatide AdvReac Mild DIARRHEA, Verified 03/20/23 07:05 STOMACH CRAMPING Home Medications Medication Instructions Recorded Confirmed Type Tumeric 1 cap BYMOUTH DAILY 06/22/20 03/20/23 History lancing device with lancets kit #1 ea 06/02/21 03/07/23 Rx (Social CollectiveTouch [employer] Lancing Device kit) cetirizine 10 mg tablet (Zyrtec) 10 mg PO DAILY 06/03/21 03/20/23 History blood sugar diagnostic (Social CollectiveTouch See Rx Instructions .Route 12/27/21 03/07/23 Rx Ultra Test strips) .COMPLEX #100 strips blood-glucose meter (Social CollectiveTouch #1 ea 12/27/21 03/07/23 Rx Ultra2 Meter) mupirocin 2 % topical ointment 1 applic topical BID PRN DRY NOSE 03/03/22 03/20/23 History lancets 33 gauge (Social CollectiveTouch Delica #300 ea 03/27/22 03/07/23 Rx Plus Lancet) dapagliflozin propanediol 10 mg 10 mg PO QAM 90 days #90 tabs 05/11/22 03/20/23 Rx tablet (Farxiga) labetalol 200 mg tablet 400 mg PO BID #360 tabs 06/13/22 03/20/23 Rx ferrous sulfate 325 mg (65 mg See Rx Instructions .Route 11/13/22 03/20/23 Rx iron) tablet .COMPLEX #30 tabs blood-glucose sensor (FreeStyle #6 ea 01/02/23 03/07/23 Rx Alecia 3 Sensor device) metformin 1,000 mg tablet 1,000 mg PO BID #180 tabs 01/02/23 03/20/23 Rx ostomy supplies (Skin Prep Wipes) #50 ea 01/02/23 03/07/23 Rx pen needle, diabetic 32 gauge x #200 ea 01/02/23 03/07/23 Rx 32 (TRUEplus Pen Needle) tirzepatide 5 mg/0.5 mL 5 mg (0.5 mL) subcut WEEKLY #2 mL 01/02/23 03/20/23 Rx subcutaneous pen injector ([employer]) atorvastatin 40 mg tablet See Rx Instructions .Route 01/08/23 03/20/23 Rx .COMPLEX #90 tabs gabapentin 800 mg tablet 800 mg PO TID 90 days #270 tabs 01/08/23 03/20/23 Rx amitriptyline 25 mg tablet 25 mg PO QHS 02/01/23 03/20/23 History L.acidophil-L.casei-B.bifid-B.longum-FOS 1 cap PO DAILY 02/19/23 03/20/23 History 2 billion cell-50 mg capsule (Probiotic Blend) Nerivive 1 cap PO HS 02/19/23 03/20/23 History Nexstellis 1 tab-cap PO DAILY 02/19/23 03/20/23 History cholecalciferol (vitamin D3) 50 50 mcg PO DAILY 02/19/23 03/20/23 History mcg (2,000 unit) capsule (Vitamin D3) coenzyme Q10 200 mg capsule (Co 200 mg PO DAILY 02/19/23 03/20/23 History Q-10) famotidine 20 mg tablet 20 mg PO BID 02/19/23 03/20/23 History fluoxetine 10 mg tablet 30 mg PO DAILY 02/19/23 03/20/23 History insulin glargine 100 unit/mL (3 70 unit subcut 2100 02/19/23 03/20/23 History mL) subcutaneous pen (Basaglar KwikPen U-100 Insulin) losartan 50 mg tablet See Rx Instructions .Route 02/19/23 03/20/23 Rx .COMPLEX #90 tabs magnesium 200 mg tablet 800 mg PO BID 02/19/23 03/20/23 History melatonin 5 mg tablet 5 mg PO HS PRN Sleep 02/19/23 03/20/23 History omega-3 fatty acids-vitamin E 1 cap PO BID 02/19/23 03/20/23 History 1,000 mg capsule omeprazole 20 mg capsule,delayed 20 mg PO DAILY 02/19/23 03/20/23 History release fluticasone propionate 50 1 - 2 spray intranasal BID PRN 03/09/23 03/20/23 Rx mcg/actuation nasal Congestion #16 grams spray,suspension (Flonase Allergy Relief) Patient hx anesthesia problems: none Family hx anesthesia problems: none Results Review: All pre-operative results and documents have been reviewed as part of the pre-operative evaluation. [facility] Past Medical History Medical History Allergies Anemia Anxiety Bilateral hip pain Chronic sinusitis Degenerative
[2023-03-20] MEDS: LACTATED RINGERS 1,000 ML 30 ML IV CONT ×2 (07:50→09:08)
[2023-03-20 07:54] LABS: Glucose Point of Care 89 mg/dl (65-105)
[2023-03-20 09:17] LABS: Glucose Point of Care 126 mg/dl (65-105)
--- NOTE | 2023-03-20 09:20 | P.OP_ITS ---
Procedure Note - Detailed Date of Procedure 03/20/23 Pre-op Diagnosis recurrent tonsillitis Post-op Diagnosis Same Procedure Performed Tonsillectomy Surgeon Erlin Pappas MD Anesthesia General Indications see above Findings really scarred in chronic appearing tonsils full of purulence and stones Description of Procedure patient identified consent verified preop. Patient operating. Performed. Anesthesia induced endotracheal tube secured airway. Patient prepped draped position procedure confirmed 2nd time-out performed. McIvor mouth gag inserted tonsils removed bilaterally in extracapsular plane using Bovie electrocautery at a setting of 8. Any bleeding was controlled with bipolar setting of 8. In- between tonsils McIvor gag was lowered to allow blood flow to return to the tongue. After the tonsils were out McIvor mouth gag was the bleeding. Total blood loss 2 cc. I performed all dictated portions procedure. No complications. Care the patient given back to Anesthesiology. I all dictated portions of procedure. Estimated Blood Loss 2 Drains No Packing No Pathology Yes Complications No immediate complications Condition Stable Disposition PACU [facility] Billing Surgery - Charge Forward: Surgery Billing
[2023-03-20] MEDS: fentaNYL CITRATE INJ (*CRX) 100 MCG/2 ML VIAL 25 MCG IV PUSH (09:39)
[2023-03-20] MEDS: oxyCODONE HCL (*CRX) 5 MG TAB IR PO (11:00)
== END 2023-03-20 12:00 | disposition home or self-care (01) ==
PROVIDERS: PCP Internal Medicine; Visit Provider Otolaryngology
PROC: (CPT 42826; principal; 2023-03-20 08:45)
DX: J35.01 Chronic tonsillitis (principal); A42.89 Other forms of actinomycosis; I10 Essential (primary) hypertension; E78.5 Hyperlipidemia, unspecified; D64.9 Anemia, unspecified; K21.9 Gastro-esophageal reflux disease without esophagitis; E55.9 Vitamin D deficiency, unspecified; E11.40 Type 2 diabetes mellitus with diabetic neuropathy, unspecified; G47.33 Obstructive sleep apnea (adult) (pediatric); F41.9 Anxiety disorder, unspecified; Z79.84 Long term (current) use of oral hypoglycemic drugs; Z79.85 Long-term (current) use of injectable non-insulin antidiabetic drugs; Z79.4 Long term (current) use of insulin
CPT/HCPCS: 42826; 82948; 88302; A9270; J0330; J1100; J2250; J2371; J2405; J2704; J3010; J7120

== ENCOUNTER 2023-03-27 09:28 | Day surgery (SDC) | payer OTHER, SELFPAY ==
[2023-03-27] VITALS (9 sets, daily range): BP systolic 119–147; BP diastolic 77–100; PULSE 100–122; RESP 16–20; TEMP 36.1–36.9; O2SAT 94–99
--- NOTE | 2023-03-27 11:03 | WPDCN ---
Assessment and Plan Assessment and plan (1) Postoperative hemorrhage: Status: Acute Assessment and Plan: plan OR control of tonsillectomy hemorrhage. HPI Data of Consult Date/Time: 03/27/23 11:03 Requesting Physician: Erlin Pappas MD Primary Care Provider: Ludwig Tavera DO Consult Narrative Narrative: Armida Vega is a 43 year old female Postop day 7 from tonsillectomy a right-sided hemorrhage. Unable to suction in the ER [facility] Past Medical History Medical History Allergies Anemia Anxiety Bilateral hip pain Chronic sinusitis Degenerative joint disease of knee Eczema Essential hypertension GERD (gastroesophageal reflux disease) Hearing loss, bilateral Heart burn Helicobacter positive gastritis Hyperlipidemia LDL goal <100 Hypertension Insomnia Low vitamin D level Neuropathy (normal spontaneous vaginal delivery) Obstructive sleep apnea Type 2 diabetes mellitus Updated A1C provided 10/14/19: 7.4 Surgical History Surgical History Delivery by section 2014 H/O dilation and curettage 2017 H/O foot surgery heel spur removal H/O prior ablation treatment 2019 H/O tubal ligation 2019 History of cholecystectomy 2010 Family History Family History Mother Hypertension Sibling Patient's brother is in good health Daughter Meningitis Father Arrhythmia Hypertension Diabetes mellitus Other Family history of arthritis Family history of cardiovascular disease Social History Social History Smoking status: Never smoker Second hand tobacco smoke exposure: No Alcohol intake: never Substance use: never Substance use type: does not use Lack of Transportation: No Lack of Food: Never True Current Housing: I Have Housing Concerned About Future Housing: No Difficulty Paying Gas/Electric Bills: No Difficulty Paying for Meds: No Currently Unemployed: No Education: Associate Degree Difficulty w/ Childcare or Family Care: No Living arrangements: with family Gender identity (if verbalized by the patient): Female Spiritual care concerns: No Meds Home Medications and Allergies Home Medications Medication Instructions Recorded Confirmed Type Tumeric 1 cap BYMOUTH DAILY 06/22/20 03/20/23 History lancing device with lancets kit #1 ea 06/02/21 03/07/23 Rx ([employer] Lancing Device kit) cetirizine 10 mg tablet (Zyrtec) 10 mg PO DAILY 06/03/21 03/20/23 History blood sugar diagnostic (OneTouch See Rx Instructions .Route 12/27/21 03/07/23 Rx Ultra Test strips) .COMPLEX #100 strips blood-glucose meter (OneTouch #1 ea 12/27/21 03/07/23 Rx Ultra2 Meter) mupirocin 2 % topical ointment 1 applic topical BID PRN DRY NOSE 03/03/22 03/20/23 History lancets 33 gauge (OneTouch Delica #300 ea 03/27/22 03/07/23 Rx Plus Lancet) dapagliflozin propanediol 10 mg 10 mg PO QAM 90 days #90 tabs 05/11/22 03/20/23 Rx tablet (Farxiga) labetalol 200 mg tablet 400 mg PO BID #360 tabs 06/13/22 03/20/23 Rx ferrous sulfate 325 mg (65 mg See Rx Instructions .Route 11/13/22 03/20/23 Rx iron) tablet .COMPLEX #30 tabs blood-glucose sensor (FreeStyle #6 ea 01/02/23 03/07/23 Rx Alecia 3 Sensor device) metformin 1,000 mg tablet 1,000 mg PO BID #180 tabs 01/02/23 03/20/23 Rx ostomy supplies (Skin Prep Wipes) #50 ea 01/02/23 03/07/23 Rx pen needle, diabetic 32 gauge x #200 ea 01/02/23 03/07/23 Rx 5/32 (TRUEplus Pen Needle) tirzepatide 5 mg/0.5 mL 5 mg (0.5 mL) subcut WEEKLY #2 mL 01/02/23 03/20/23 Rx subcutaneous pen injector ([employer]) atorvastatin 40 mg tablet See Rx Instructions .Route 01/08/23 03/20/23 Rx .COMPLEX #90 tabs gabapentin 800 mg tablet 800 mg PO TID 90 days #270 tabs 10
--- NOTE | 2023-03-27 11:05 | WPDHPUPDATE1 ---
History and Physical Update Update Date/Time: 03/27/23 11:05 History and Physical has been reviewed, including an updated exam of the patient. There are NO changes in the patient's condition. Risks, benefits, and alternatives have been discussed and questions answered. Patient agrees to proceed with procedure.
[2023-03-27 11:15] LABS: Glucose Point of Care 220 mg/dl (65-105)
--- NOTE | 2023-03-27 11:16 | WPDANESEPPF ---
Anes - Initial Pre Proc Eval Procedure: Operation Date: 03/27/23 13:00 Proposed Procedures p Post Op Tonsil Bleed - Erlin Pappas MD Date/Time: 03/27/23 11:16 Surgeon: Erlin Pappas MD Pre Op Diagnosis: post op tonsil bleed Patient Data Age: 43 Gender: F Height: Weight: 100 kg Last Vital Signs Temp 36.9 C 03/27/23 09:31 Pulse 102 H 03/27/23 11:00 Resp 18 03/27/23 11:00 BP 145/98 H 03/27/23 11:00 Pulse Ox 96 03/27/23 09:31 O2 Del Method Room Air 03/27/23 09:31 Allergies Allergy/AdvReac Type Severity Reaction Status Date / Time coconut Allergy Severe SWELLING, Verified 03/20/23 07:05 RESPIRATORY DISTRESS exenatide AdvReac Mild DIARRHEA, Verified 03/20/23 07:05 STOMACH CRAMPING Home Medications Medication Instructions Recorded Confirmed Type Tumeric 1 cap BYMOUTH DAILY 06/22/20 03/20/23 History lancing device with lancets kit #1 ea 06/02/21 03/07/23 Rx ([facility] [facility] [employer] [employer] Lancing Device kit) cetirizine 10 mg tablet (Zyrtec) 10 mg PO DAILY 06/03/21 03/20/23 History blood sugar diagnostic ([employer] See Rx Instructions .Route 12/27/21 03/07/23 Rx Ultra Test strips) .COMPLEX #100 strips blood-glucose meter ([employer] #1 ea 12/27/21 03/07/23 Rx Ultra2 Meter) mupirocin 2 % topical ointment 1 applic topical BID PRN DRY NOSE 03/03/22 03/20/23 History lancets 33 gauge ([employer] Delica #300 ea 03/27/22 03/07/23 Rx Plus Lancet) dapagliflozin propanediol 10 mg 10 mg PO QAM 90 days #90 tabs 05/11/22 03/20/23 Rx tablet (Farxiga) labetalol 200 mg tablet 400 mg PO BID #360 tabs 06/13/22 03/20/23 Rx ferrous sulfate 325 mg (65 mg See Rx Instructions .Route 11/13/22 03/20/23 Rx iron) tablet .COMPLEX #30 tabs blood-glucose sensor (Healion[employer]yle #6 ea 01/02/23 03/07/23 Rx Alecia 3 Sensor device) metformin 1,000 mg tablet 1,000 mg PO BID #180 tabs 01/02/23 03/20/23 Rx ostomy supplies (Skin Prep Wipes) #50 ea 01/02/23 03/07/23 Rx pen needle, diabetic 32 gauge x #200 ea 01/02/23 03/07/23 Rx /32 (TRUEplus Pen Needle) tirzepatide 5 mg/0.5 mL 5 mg (0.5 mL) subcut WEEKLY #2 mL 01/02/23 03/20/23 Rx subcutaneous pen injector ([employer]) atorvastatin 40 mg tablet See Rx Instructions .Route 01/08/23 03/20/23 Rx .COMPLEX #90 tabs gabapentin 800 mg tablet 800 mg PO TID 90 days #270 tabs 01/08/23 03/20/23 Rx amitriptyline 25 mg tablet 25 mg PO QHS 02/01/23 03/20/23 History L.acidophil-L.casei-B.bifid-B.longum-FOS 1 cap PO DAILY 02/19/23 03/20/23 History 2 billion cell-50 mg capsule (Probiotic Blend) Nerivive 1 cap PO HS 02/19/23 03/20/23 History Nexstellis 1 tab-cap PO DAILY 02/19/23 03/20/23 History cholecalciferol (vitamin D3) 50 50 mcg PO DAILY 02/19/23 03/20/23 History mcg (2,000 unit) capsule (Vitamin D3) coenzyme Q10 200 mg capsule (Co 200 mg PO DAILY 02/19/23 03/20/23 History Q-10) famotidine 20 mg tablet 20 mg PO BID 02/19/23 03/20/23 History fluoxetine 10 mg tablet 30 mg PO DAILY 02/19/23 03/20/23 History insulin glargine 100 unit/mL (3 70 unit subcut 2100 02/19/23 03/20/23 History mL) subcutaneous pen (Basaglar KwikPen U-100 Insulin) losartan 50 mg tablet See Rx Instructions .Route 02/19/23 03/20/23 Rx .COMPLEX #90 tabs magnesium 200 mg tablet 800 mg PO BID 02/19/23 03/20/23 History melatonin 5 mg tablet 5 mg PO HS PRN Sleep 02/19/23 03/20/23 History omega-3 fatty acids-vitamin E 1 cap PO BID 02/19/23 03/20/23 History 1,000 mg capsule omeprazole 20 mg capsule,delayed 20 mg PO DAILY 02/19/23 03/20/23 History release fluticasone propionate 50 1 - 2 spray intranasal BID PRN 03/09/23 03/20/23 Rx mcg/actuation nasal Congestion #16 grams spray,suspension (Flonase Allergy Relief) amoxicillin 875 mg-potassium 1 tablet PO Q12H #14 tabs 03/20/23 Rx clavulanate 125 mg tablet oxycodone 5 mg tablet 5 mg PO Q6H PRN pain #30 tabs 03/20/23 Rx Laboratory Tests 03/27/23 11:12 POC Capillary Glucose 220 H
--- NOTE | 2023-03-27 11:38 | SUR.PREOP ---
1120-urine test waived by Dr. Hall-pt unable to void and OR ready. Dr. Hall aware of poc glucose-no orders.
[2023-03-27] MEDS: LACTATED RINGERS 1,000 ML 30 ML IV CONT ×2 (12:11→12:51)
[2023-03-27 12:23] LABS: Glucose Point of Care 226 mg/dl (65-105)
--- NOTE | 2023-03-27 12:29 | W.PM.PROC2 ---
Procedure Note - Detailed Date of Procedure 03/27/23 Pre-op Diagnosis post op tonsil bleed Post-op Diagnosis Same Procedure Performed Control of post tonsillectomy hemorrhage Surgeon Erlin Pappas MD Anesthesia General Indications see above Findings right larger caliber vessel kind of mid superior pole superior left-sided vessel both cauterized Description of Procedure patient identified consent verified. Patient brought to the operating room. Time-out performed. General anesthesia induced endotracheal tube secured. Patient prepped draped positioned procedure confirmed 2nd time-out performed. Patient brought to the [place] mouth gag inserted clot suctioned out of the right-sided bleeding vessel from the right mid superior pole cauterized with bipolar setting of 10 Bovie suction electrocautery setting of 10. Left side examined small bleeding vessel left superior cauterized with bipolar suction Bovie. Suck the stomach was suctioned out with an orogastric tube. [place] mouth gag removed. No bleeding. Patient tolerated the procedure well no complications care the patient given Anesthesiology. Estimated Blood Loss 5 Drains No Packing No Pathology None sent Complications No immediate complications Condition Stable Disposition PACU [facility] Billing Surgery - Charge Forward: Surgery Billing
== END 2023-03-27 13:42 | disposition home or self-care (01) ==
LOC: ANHED 10:51 → ANHSURGERY 10:59
PROVIDERS: Emergency Provider Emergency Medicine; PCP Internal Medicine; Visit Provider Otolaryngology
PROC: (CPT 42960; principal; 2023-03-27 13:00)
DX: J95.830 Postprocedural hemorrhage of a respiratory system organ or structure following a respiratory system procedure (principal); Y83.8 Other surgical procedures as the cause of abnormal reaction of the patient, or of later complication, without mention of misadventure at the time of the procedure; I10 Essential (primary) hypertension; E78.5 Hyperlipidemia, unspecified; G47.33 Obstructive sleep apnea (adult) (pediatric); D64.9 Anemia, unspecified; F41.9 Anxiety disorder, unspecified; K21.9 Gastro-esophageal reflux disease without esophagitis; E11.40 Type 2 diabetes mellitus with diabetic neuropathy, unspecified; Z79.84 Long term (current) use of oral hypoglycemic drugs; Z79.85 Long-term (current) use of injectable non-insulin antidiabetic drugs; Z79.4 Long term (current) use of insulin; Z79.891 Long term (current) use of opiate analgesic
CPT/HCPCS: 42960; 82948; J0330; J1100; J2250; J2405; J2704; J3010; J7120

== ENCOUNTER 2023-08-29 09:34 | Outpatient (CLI) | payer OTHER, SELFPAY ==
--- NOTE | ~2023-08-29 | MM_ITS ---
EXAMINATION: MM screening [place] BI w [place] HISTORY: Screening TECHNIQUE: Craniocaudal and mediolateral oblique 3-D tomosynthesis images were obtained and synthetic 2-D images were generated. CAD analysis was submitted and interpreted. COMPARISON: Comparison to multiple prior studies sequentially, with oldest reviewed study dated 12/01. BREAST PARENCHYMAL COMPOSITION: Not dense: There are scattered areas of fibroglandular density. FINDINGS: There is no evidence of suspicious mass, calcification, or architectural distortion to sugg est malignancy in either breast. There has been no suspicious interval change. IMPRESSION: 1. No mammographic evidence of malignancy. 2. Recommend routine screening mammography in one year. BI-RADS Category 1: Negative Reviewed, dictated and finalized at location B.
== END 2023-08-29 09:35 | disposition home or self-care (01) ==
PROVIDERS: PCP Internal Medicine; Visit Provider Nurse Practitioner
DX: Z12.31 Encounter for screening mammogram for malignant neoplasm of breast (principal)
CPT/HCPCS: 77063; 77067